=== PATIENT | male | born 1970 | race Caucasian/White ===

== ENCOUNTER 2016-11-13 18:19 | Emergency (ER) | payer MEDICAID ==
[2016-11-13 18:43] LABS: CHLORIDE,CL 105 mmol/L (98-109); SODIUM,NA 142 mmol/L (138-146)
[2016-11-13] MEDS ORDERED: Sodium Chloride 0.9% 1,000 ML IV ONE (18:55)
[2016-11-13] MEDS ORDERED: Succinylcholine 200 MG/10 ML MDV ONE (19:07)
[2016-11-13] MEDS ORDERED: Rocuronium 50 MG/5 ML Vial ONE (19:07)
--- NOTE | 2016-11-13 19:25 | EDM.PDOC ---
<AleksanderAbel - Last Filed: 11/13/16 20:03> ED HPI GENERAL MEDICAL PROBLEM - General Chief Complaint: Neuro Symptoms/Deficits Stated Complaint: CODE GREEN Time Seen by Provider: 11/13/16 18:26 Past Medical History Neurological History: Reports: CVA Social & Family History - Family History Family Medical History: Noncontributory ED EXAM, NEURO - Physical Exam Exam: See Below ED NEURO PROCEDURES - Endotracheal Intubation Time of Intubation: 19:16 ET Intubation Indication: Airway Protection Preparation: Suction, Balloon Tested, BVM Set Up, Difficult Airway Equip Airway Assessment: Large Tongue Pre-Oxygenation: Assisted with BVM, 100% FiO2 Anesthesia Meds: Etomidate, Succinylcholine Placement: Orotracheal Cords Visualized: Yes Number of Attempts: 2 Confirmed By: CO2 Indicator, Bilateral Breath Sounds, Chest Xray Tube Secured By: By RT Endotracheal Intubation Comment: ET tube placement successful on attempt #2. No complications. VSS throughout procedure. EKG INTERPRETATION EKG Date: 11/13/16 Time: 18:52 Rhythm: NSR Rate (Beats/Min): 88 [place]: Normal P-Wave: Present QRS: Normal ST-T: Depressed QT: Normal NM/PQ Interval: 0.19 Comparison: NA - No Prior EKG EKG Interpretation Comments: 1. Sinus Rhythm 2. Moderate ST Depression (0.05+ mV ST Depression) 3. Abnormal QRS-T angle (QRS-T [place] difference >60) Course - Orders/Labs/Meds Labs: Laboratory Tests 11/13/16 11/13/16 11/13/16 Range/Units 18:29 18:30 18:30 WBC 8.5 (4.0-10.0) x10^3/uL RBC 4.36 L (4.5-6.0) x10^6/uL Hgb 13.8 L (14.0-18.0) g/dL Hct 40.8 (40.0-52.0) % MCV 93.6 H (78.0-93.0) fL MCH 31.7 (26.0-32.0) pg MCHC 33.8 (32.0-36.0) g/dL RDW Coeff of Karl 13.4 (10.0-15.0) % Plt Count 136 (130-400) x10^3/uL Add Manual Diff Yes Neutrophils % (Manual) 53 (50-80) % Lymphocytes % (Manual) 28 (25-50) % Monocytes % (Manual) 14 H (2-11) % Eosinophils % (Manual) 5 H (0-4) % Platelet Estimate Adequate Macrocytosis 1+ slight H PT 10.6 (9.8-11.8) SEC INR 1.0 L (2.0-3.5) APTT 23.7 (22.0-34.0) SEC POC ABG pH (7.35-7.45) POC ABG pCO2 (35-45) mmHG POC ABG pO2 (80-105) mmHG POC ABG HCO3 (22-26) mmol/L POC ABG Total CO2 (23-27) mmol/L POC ABG O2 Sat (95-98) % POC ABG Base Excess (-2-3) mmol/L POC FiO2 Sodium (138-146) mmol/L Potassium (3.5-4.9) mmol/L Chloride (98-109) mmol/L Carbon Dioxide (24-29) mmol/L BUN (8-26) mg/dL Creatinine (0.6-1.3) mg/dL Est Cr Clr Drug Dosing Estimated GFR (MDRD) Glucose (70-105) mg/dL POC Glucose 115 H (74-106) mg/dL Calcium (8.5-10.1) mg/dL Corrected Calcium (8.5-10.1) mg/dL Total Bilirubin (0.2-1.0) mg/dL AST (15-37) U/L ALT (16-63) U/L Alkaline Phosphatase (46-116) U/L Creatine Kinase (39-308) U/L Creatine Kinase Index (0.0-4.0) % CK-MB (CK-2) (0.0-3.6) ng/mL POC Troponin I (0.00-0.08) ng/mL Troponin I Total Protein (6.4-8.2) g/dL Albumin (3.4-5.0) g/dL Globulin Albumin/Globulin Ratio Urine Color (YELLOW) Urine Appearance (CLEAR) Urine pH (5.0-8.0) Ur Specific [place] Urine Protein (NEGATIVE) mg/dL Urine Glucose (UA) (NEGATIVE) mg/dL Urine Ketones (NEGATIVE) mg/dL Urine Occult Blood (NEGATIVE) Urine Nitrite (NEGATIVE) Urine Bilirubin (NEGATIVE) Urine Urobilinogen (0.2) EU/dL Ur Leukocyte Esterase (NEGATIVE) Urine RBC (NOT SEEN) /HPF Urine WBC (NOT SEEN) /HPF Ur Squamous Epith Cells (NEGATIVE) /HPF Urine Bacteria (NEGATIVE) /HPF Urine Mucus (NEGATIVE) /LPF Urine Opiates Screen (NEAGTIVE) Ur Buprenorphine Scrn (NEGATIVE) Ur Oxycodone Screen (NEGATIVE) Urine Methadone Screen (NEGATIVE) Ur Barbiturates Screen (NEGATIVE) Ur Tricyclics Screen (NEGATIVE) Ur Amphetamine Screen (NEGATIVE) U Methamphetamines Scrn (NEGATIVE) Urine MDMA Screen (NEGATIVE) U Benzodiazepines Scrn (NEGATIVE) U Cocaine Metab Screen (NEGATIVE) U Marijuana (THC) Screen (NEGATIVE) Ethyl Alcohol (0-3) mg/dL 11/13/16 11/13/16 11/13/16 Range/Units 18:30 18:42 19:28 WBC (4.0-10.0) x10^3/uL RBC (4.5-6.0) x10^6/uL Hgb (14.0-18.0) g/dL Hct (40.0-52.0) % MCV (78.0-93.0) fL MCH (26.0-32.0) pg MCHC (32.0-36.0) g/dL RDW Coeff of Karl (10.0-15.0) % Plt Count (130-400) x10^3/uL Add Manual Diff Neutrophils % (Manual) (50-80) % Lymphocytes % (Manual) (25-50) % Monocytes % (Manual) (2-11) % Eosinophils % (Manual) (0-4) % Platelet Estimate Macrocytosis PT (9.8-11.8) SEC INR (2.0-3.5) APTT (22.0-34.0) SEC POC ABG pH (7.35-7.45) POC ABG pCO2 (35-45) mmHG POC ABG pO2 (80-105) mmHG POC ABG HCO3 (22-26) mmol/L POC ABG Total CO2 (23-27) mmol/L POC ABG O2 Sat (95-98) % POC ABG Base Excess (-2-3) mmol/L POC FiO2 Sodium 142 (138-146) mmol/L Potassium 3.5 (3.5-4.9) mmol/L Chloride 105 (98-109) mmol/L Carbon Dioxide 26 (24-29) mmol/L BUN 15 (8-26) mg/dL Creatinine 1.3 (0.6-1.3) mg/dL Est Cr Clr Drug Dosing TNP Estimated GFR (MDRD) 59 Glucose 116 H (70-105) mg/dL POC Glucose (74-106) mg/dL Calcium 8.1 L (8.5-10.1) mg/dL Corrected Calcium 8.74 (8.5-10.1) mg/dL Total Bilirubin 0.4 (0.2-1.0) mg/dL AST 14 L (15-37) U/L ALT 21 (16-63) U/L Alkaline Phosphatase 124 H (46-116) U/L Creatine Kinase 207 (39-308) U/L Creatine Kinase Index 0.5 (0.0-4.0) % CK-MB (CK-2) 1.1 (0.0-3.6) ng/mL POC Troponin I 0.00 (0.00-0.08) ng/mL Troponin I Cancelled Total Protein 6.7 (6.4-8.2) g/dL Albumin 3.2 L (3.4-5.0) g/dL Globulin 3.5 Albumin/Globulin Ratio 0.91 Urine Color Light yellow (YELLOW) Urine Appearance Slightly cloudy H (CLEAR) Urine pH 6.5 (5.0-8.0) Ur Specific [place] 1.010 Urine Protein Negative (NEGATIVE) mg/dL Urine Glucose (UA) Negative (NEGATIVE) mg/dL Urine Ketones Negative (NEGATIVE) mg/dL Urine Occult Blood Trace-lysed H (NEGATIVE) Urine Nitrite Negative (NEGATIVE) Urine Bilirubin Negative (NEGATIVE) Urine Urobilinogen 0.2 (0.2) EU/dL Ur Leukocyte Esterase Negative (NEGATIVE) Urine RBC 0-5 (NOT SEEN) /HPF Urine WBC 0-5 (NOT SEEN) /HPF Ur Squamous Epith Cells Rare (NEGATIVE) /HPF Urine Bacteria Not seen (NEGATIVE) /HPF Urine Mucus Not seen (NEGATIVE) /LPF Urine Opiates Screen (NEAGTIVE) Ur Buprenorphine Scrn (NEGATIVE) Ur Oxycodone Screen (NEGATIVE) Urine Methadone Screen (NEGATIVE) Ur Barbiturates Screen (NEGATIVE) Ur Tricyclics Screen (NEGATIVE) Ur Amphetamine Screen (NEGATIVE) U Methamphetamines Scrn (NEGATIVE) Urine MDMA Screen (NEGATIVE) U Benzodiazepines Scrn (NEGATIVE) U Cocaine Metab Screen (NEGATIVE) U Marijuana (THC) Screen (NEGATIVE) Ethyl Alcohol < 3 (0-3) mg/dL 11/13/16 11/13/16 Range/Units 19:29 19:57 WBC (4.0-10.0) x10^3/uL RBC (4.5-6.0) x10^6/uL Hgb (14.0-18.0) g/dL Hct (40.0-52.0) % MCV (78.0-93.0) fL MCH (26.0-32.0) pg MCHC (32.0-36.0) g/dL RDW Coeff of Karl (10.0-15.0) % Plt Count (130-400) x10^3/uL Add Manual Diff Neutrophils % (Manual) (50-80) % Lymphocytes % (Manual) (25-50) % Monocytes % (Manual) (2-11) % Eosinophils % (Manual) (0-4) % Platelet Estimate Macrocytosis PT (9.8-11.8) SEC INR (2.0-3.5) APTT (22.0-34.0) SEC POC ABG pH 7.397 (7.35-7.45) POC ABG pCO2 53 H (35-45) mmHG POC ABG pO2 503 H (80-105) mmHG POC ABG HCO3 33 H (22-26) mmol/L POC ABG Total CO2 34 H (23-27) mmol/L POC ABG O2 Sat 100 H (95-98) % POC ABG Base Excess 8 H (-2-3) mmol/L POC FiO2 1.00 Sodium (138-146) mmol/L Potassium (3.5-4.9) mmol/L Chloride (98-109) mmol/L Carbon Dioxide (24-29) mmol/L BUN (8-26) mg/dL Creatinine (0.6-1.3) mg/dL Est Cr Clr Drug Dosing Estimated GFR (MDRD) Glucose (70-105) mg/dL POC Glucose (74-106) mg/dL Calcium (8.5-10.1) mg/dL Corrected Calcium (8.5-10.1) mg/dL Total Bilirubin (0.2-1.0) mg/dL AST (15-37) U/L ALT (16-63) U/L Alkaline Phosphatase (46-116) U/L Creatine Kinase (39-308) U/L Creatine Kinase Index (0.0-4.0) % CK-MB (CK-2) (0.0-3.6) ng/mL POC Troponin I (0.00-0.08) ng/mL Troponin I Total Protein (6.4-8.2) g/dL Albumin (3.4-5.0) g/dL Globulin Albumin/Globulin Ratio Urine Color (YELLOW) Urine Appearance (CLEAR) Urine pH (5.0-8.0) Ur Specific [place] Urine Protein (NEGATIVE) mg/dL Urine Glucose (UA) (NEGATIVE) mg/dL Urine Ketones (NEGATIVE) mg/dL Urine Occult Blood (NEGATIVE) Urine Nitrite (NEGATIVE) Urine Bilirubin (NEGATIVE) Urine Urobilinogen (0.2) EU/dL Ur Leukocyte Esterase (NEGATIVE) Urine RBC (NOT SEEN) /HPF Urine WBC (NOT SEEN) /HPF Ur Squamous Epith Cells (NEGATIVE) /HPF Urine Bacteria (NEGATIVE) /HPF Urine Mucus (NEGATIVE) /LPF Urine Opiates Screen Negative (NEAGTIVE) Ur Buprenorphine Scrn Negative (NEGATIVE) Ur Oxycodone Screen Negative (NEGATIVE) Urine Methadone Screen Negative (NEGATIVE) Ur Barbiturates Screen Negative (NEGATIVE) Ur Tricyclics Screen Positive H (NEGATIVE) Ur Amphetamine Screen Negative (NEGATIVE) U Methamphetamines Scrn Negative (NEGATIVE) Urine MDMA Screen Negative (NEGATIVE) U Benzodiazepines Scrn Negative (NEGATIVE) U Cocaine Metab Screen Negative (NEGATIVE) U Marijuana (THC) Screen Negative (NEGATIVE) Ethyl Alcohol (0-3) mg/dL Meds: Medications Discontinued Medications Generic Name Dose Route Start Last Admin Trade Name Freq PRN Reason Stop Dose Admin Chlorhexidine Gluconate Confirm 11/13/16 21:35 Peridex 0.12% Rinse Administered 11/13/16 21:36 Dose 15 ml .ROUTE .STK-MED ONE Etomidate Confirm 11/13/16 21:30 Amidate Administered 11/13/16 21:31 Dose 20 mg .ROUTE .STK-MED ONE Etomidate Confirm 11/13/16 21:31 Amidate Administered 11/13/16 21:32 Dose 20 mg .ROUTE .STK-MED ONE Fentanyl Confirm 11/13/16 21:29 Sublimaze Administered 11/13/16 21:30 Dose 100 mcg .ROUTE .STK-MED ONE Sodium Chloride 1,000 mls @ as directed 11/13/16 18:55 Normal Saline IV 11/13/16 18:56 .STK-MED ONE Midazolam HCl Confirm 11/13/16 21:30 Versed 1 Mg/Ml Administered 11/13/16 21:31 Dose 2 mg .ROUTE .STK-MED ONE Rocuronium [place] Confirm 11/13/16 19:07 Zemuron Administered 11/13/16 19:08 Dose 50 mg .ROUTE .STK-MED ONE Sodium Chloride 10 ml 11/13/16 19:30 Saline Flush FLUSH ASDIRECTED PRN Keep Vein Open Succinylcholine Chloride Confirm 11/13/16 19:07 Quelicin Administered 11/13/16 19:08 Dose 200 mg .ROUTE .STK-MED ONE Departure - Departure Time of Disposition: 19:59 Disposition: DC/Tfer to [facility] 02 Condition: Good Clinical Impression: Airway intubation performed without difficulty, Ineffective airway clearance Overdose Qualifiers: Encounter type: initial encounter Injury intent: undetermined intent Qualified Code(s): T50.904A - Poisoning by unspecified drugs, medicaments and biological substances, undetermined, initial encounter Altered mental status Qualifiers: Altered mental status type: somnolence Qualified Code(s): R40.0 - Somnolence - Discharge Information Forms: Interfacility Transfer [facility] ED Communication - ED Communication Date/Time Date: 11/13/16 Time Called: 19:38 - Discussed Case With (1) Discussed Case With (1): Admitting Provider (Dr. Lee, ICU [facility] [place] Operator) - Conversation Summary Admitting Provider Agreed to Patient's Admission: Yes Summary Comment: Patient will be transferred to [facility]. Report given to Dr. Lee, ICU Strip [place] Operator. All questions answered. Patient will be transferred via ALS ground. - Problem List Review Problem List Initiated/Reviewed/Updated: Yes <Oli Pink - Last Filed: 11/17/16 09:42> ED HPI GENERAL MEDICAL PROBLEM - General Source of Information: Reports: EMS History Limitations: Reports: Altered Mental Status - History of Present Illness INITIAL COMMENTS - FREE TEXT/NARRATIVE: Patient comes in via ems for possible stroke like symptoms. His girlfriend reports some speech slurring at about 430, she then left and upon her return at 1800 found him further slurring speech, poor reactivity. Brought here and is largely uncooperative. Strength is equal to upper, lower extremities. Onset: Today, Sudden ED ROS GENERAL - Review of Systems Review Of Systems: Unable To Obtain ED EXAM, NEURO - Physical Exam Exam Limited By: Other (possible overdose of cyclobenzaprine and celebrex) General Appearance: Lethargic, Moderate Distress, Thin Eye Exam: Bilateral Eye: Abnormal Pupil (slow reaction), EOMI (moving independently but not following commands), PERRL (slow to react) Ears: Normal TMs Throat/Mouth: Normal Lips. No: Normal Teeth (missing) Head Exam: Atraumatic, Normocephalic Respiratory/Chest: No Respiratory Distress, Lungs Clear, Normal Breath Sounds, No Accessory Muscle Use, Chest Non-Tender Cardiovascular: Normal Peripheral Pulses, Regular Rate, Rhythm, No Edema, No Murmur GI/Abdominal: Normal Bowel Sounds, Soft, Non-Tender, No Organomegaly Neurological: Other (largely non cooperative with commands. He is able to lift and hold all four extremities with equal strength) Extremities: Normal Inspection, Normal Range of Motion, Non-Tender, Normal Capillary Refill Psychiatric: Normal Affect Skin Exam: Warm, Dry, Intact, Normal Color Course - Vital Signs Text/Narrative:: Please see Abel Armijo note for further information. Report given to him. Intubated and transferred to [place].
[2016-11-13] MEDS ORDERED: Sodium Chloride 0.9% 10 ML Syringe FLUSH PRN (19:30)
[2016-11-13] MEDS ORDERED: fentaNYL 100 MCG/2 ML SDV ONE (21:29)
[2016-11-13] MEDS ORDERED: Etomidate 2 MG/ML 10 ML SDV ONE ×2 (21:30→21:31)
[2016-11-13] MEDS ORDERED: Midazolam 1 MG/ML 2 ML SDV ONE (21:30)
[2016-11-13] MEDS ORDERED: Chlorhexidine Gluconate 0.12% Oral Rinse 15 ML Cup ONE (21:35)
== END 2016-11-13 20:19 | disposition short-term general hospital (02) ==
LOC: VM.ED 18:19
DX: T39.391A Poisoning by other nonsteroidal anti-inflammatory drugs [NSAID], accidental (unintentional), initial encounter (principal); T48.1X1A Poisoning by skeletal muscle relaxants [neuromuscular blocking agents], accidental (unintentional), initial encounter; R40.0 Somnolence
CPT/HCPCS: 31500; 36415; 36600; 70450; 71010; 80053; 80299; 80305; 81001; 82550; 82553; 82803; 82962; 84484; 85025; 85610; 85730; 93005; 94002; 96361; 96374; 96375; 99291; 99292; G0480; J0330; J2250; J3010; J7030; 51702

== ENCOUNTER 2017-08-27 13:10 | Emergency (ER) | payer MEDICAID ==
[2017-08-27 14:57] LABS: CHLORIDE,CL 108 mmol/L (98-107); SODIUM,NA 140 mmol/L (136-145)
[2017-08-27] MEDS ORDERED: Iopamidol 612 MG/ML 100 ML Bottle IVPUSH ONE (15:28)
[2017-08-27] MEDS ORDERED: Acetaminophen/HYDROcodone 325-10 MG Tab PO ONE (15:34)
--- NOTE | 2017-08-28 12:43 | EDM.PDOC ---
ED HPI GENERAL MEDICAL PROBLEM - General Chief Complaint: General Stated Complaint: RIGHT RIBS HURT Time Seen by Provider: 08/27/17 13:20 Source of Information: Reports: Patient History Limitations: Reports: No Limitations - History of Present Illness INITIAL COMMENTS - FREE TEXT/NARRATIVE: Pt. states that he fell and landed with the r lower ribs striking a speaker. He complains of RUQ abdominal pain and R lower rib pain. He states that this happened yesterday and is not improving. Denies any lightheadedness. No nausea, vomiting, or diarrhea. Onset: Today Location: Reports: Chest, Abdomen Quality: Reports: Ache, Stabbing, Throbbing Severity: Severe Thoracic Pain Score (Numeric/FACES): 8 - Related Data Allergies Allergy/AdvReac Type Severity Reaction Status Date / Time No Known Allergies Allergy Verified 08/27/17 13:55 Past Medical History Neurological History: Reports: CVA Social & Family History - Family History Family Medical History: Noncontributory - Tobacco Use Smoking Status *Q: Current Every Day Smoker Years of Tobacco use: 20 Packs/Tins Daily: 0.5 ED ROS GENERAL - Review of Systems Review Of Systems: See Below Constitutional: Reports: No Symptoms HEENT: Reports: No Symptoms Respiratory: Reports: No Symptoms Cardiovascular: Reports: Chest Pain Endocrine: Reports: No Symptoms GI/Abdominal: Reports: Abdominal Pain : Reports: No Symptoms Musculoskeletal: Reports: No Symptoms Skin: Reports: No Symptoms Neurological: Reports: No Symptoms Psychiatric: Reports: No Symptoms Hematologic/Lymphatic: Reports: No Symptoms Immunologic: Reports: No Symptoms ED EXAM, GENERAL - Physical Exam Exam: See Below Exam Limited By: No Limitations General Appearance: Alert, WD/WN, No Apparent Distress Nose: Normal Inspection, Normal Mucosa, No Blood Throat/Mouth: Normal Inspection, Normal Lips, Normal Teeth, Normal Gums, Normal Oropharynx, Normal Voice, No Airway Compromise Head: Atraumatic, Normocephalic Neck: Normal Inspection, Supple, Non-Tender, Full Range of Motion Respiratory/Chest: No Respiratory Distress, No Accessory Muscle Use, Decreased Breath Sounds, Other (R sided chest pain) Cardiovascular: Normal Peripheral Pulses, Regular Rate, Rhythm, No Edema, No Gallop, No JVD, No Murmur, No Rub Peripheral Pulses: 4+: Femoral (L), Femoral (R) GI/Abdominal: No Organomegaly, No Distention, Tender (Male) Exam: Deferred Rectal (Males) Exam: Deferred Course - Vital Signs Last Recorded V/S: Last Vital Signs Temp 36.8 C 08/27/17 13:15 Pulse 67 08/27/17 13:15 Resp 16 08/27/17 13:15 BP 137/93 H 08/27/17 13:15 Pulse Ox 96 08/27/17 13:15 - Orders/Labs/Meds Orders: Active Orders 24 hr Category Date Time Status Chest Abdomen Pelvis w Cont [CT] Stat Exams 08/27/17 14:53 Taken Ribs 2V w Chest Rt [CR] Stat Exams 08/27/17 13:55 Taken Labs: Laboratory Tests 08/27/17 08/27/17 08/27/17 Range/Units 14:36 14:36 14:36 WBC 7.5 (4.0-10.0) x10^3/uL RBC 4.82 (4.5-6.0) x10^6/uL Hgb 15.0 (14.0-18.0) g/dL Hct 44.6 (40.0-52.0) % MCV 92.5 (78.0-93.0) fL MCH 31.1 (26.0-32.0) pg MCHC 33.6 (32.0-36.0) g/dL RDW Coeff of Karl 14.0 (10.0-15.0) % Plt Count 104 L (130-400) x10^3/uL Neut % (Auto) 69.8 (50.0-80.0) % Lymph % (Auto) 19.7 L (25.0-50.0) % [place] % (Auto) 7.8 (2.0-11.0) % Eos % (Auto) 2.4 (0.0-4.0) % Baso % (Auto) 0.3 (0.2-1.2) % PT 10.1 (9.6-11.4) SEC INR 1.0 L (2.0-3.5) Sodium 140 (136-145) mmol/L Potassium 3.8 (3.5-5.1) mmol/L Chloride 108 H (98-107) mmol/L Carbon Dioxide 23 (21-32) mmol/L Anion [place] 12.8 (10-20) mmol/L BUN 16 (7-18) mg/dL Creatinine 1.2 (0.70-1.30) mg/dL Est Cr Clr Drug Dosing TNP Estimated GFR (MDRD) > 60 Glucose 91 (74-106) mg/dL Calcium 8.2 L (8.5-10.1) mg/dL Meds: Medications Discontinued Medications Generic Name Dose Route Start Last Admin Trade Name Freq PRN Reason Stop Dose Admin Hydrocodone Bitart/Acetaminophen 1 tab 08/27/17 15:34 08/27/17 15:38 [place] 325-10 Mg PO 08/27/17 15:35 1 tab ONETIME ONE Administration Iopamidol 100 ml 08/27/17 15:28 08/27/17 15:51 Isovue-300 (61%) IVPUSH 08/27/17 15:29 100 ml ONETIME ONE Administration - Radiology Interpretation Free Text/Narrative:: Plain film and contrast CT images did not indicate any acute pathology other than 2 fractured ribs. Departure - Departure Time of Disposition: 17:10 Disposition: Home, Self-Care 01 Clinical Impression: Chest wall contusion - Discharge Information Instructions: Rib Fracture Referrals: Cody Abdul PA-C [Primary Care Provider] - Forms: ED Department Discharge Additional Instructions: [place] 5/325mg 1 tablet every 6 hours as needed. May take Aleve or Ibuprofen for discomfort in addition. Follow-up in clinic in 5-7 days. - My Orders Last 24 Hours: My Active Orders 08/27/17 13:55 Ribs 2V w Chest Rt [CR] Stat 08/27/17 14:53 Chest Abdomen Pelvis w Cont [CT] Stat - Assessment/Plan Last 24 Hours: My Active Orders 08/27/17 13:55 Ribs 2V w Chest Rt [CR] Stat 08/27/17 14:53 Chest Abdomen Pelvis w Cont [CT] Stat
== END 2017-08-27 17:10 | disposition home or self-care (01) ==
LOC: VM.ED 13:10
DX: S20.211A Contusion of right front wall of thorax, initial encounter (principal); F17.210 Nicotine dependence, cigarettes, uncomplicated; W22.8XXA Striking against or struck by other objects, initial encounter
CPT/HCPCS: 36415; 71101; 71260; 74177; 80048; 85025; 85610; 99284; A9270; Q9967

== ENCOUNTER 2017-08-30 09:32 | Emergency (ER) | payer MEDICAID ==
--- NOTE | 2017-08-30 10:04 | EDM.PDOC ---
ED HPI GENERAL MEDICAL PROBLEM - General Chief Complaint: General Stated Complaint: Chronic rib pain Time Seen by Provider: 08/30/17 09:45 Source of Information: Reports: Patient History Limitations: Reports: No Limitations - History of Present Illness INITIAL COMMENTS - FREE TEXT/NARRATIVE: Pt. presents to ER with complaints of continued R lower rib pain requesting a refill of his norco. Pt. was seen in ER approx. 3 days ago with complaints of rib pain after a fall. He states that he landed on a speaker during the fall and was experiencing respirophasic anterior chest pain. Plain film x-rays revealed 2 rib fractures (9th and 10th ribs) on the plain film radiographs. The fractures were overlying the liver. Decision was made to CT the pts. chest and abdomen. There was on evidence of pneumothorax, liver laceration or other pathology. Pt. states that he hasn't been taking his ibuprofen regularly. Onset Date: 08/30/17 Onset Time: 09:40 Location: Reports: Chest Quality: Reports: Ache, Throbbing Associated Symptoms: Reports: Chest Pain, Shortness of Breath (Dyspnea due to discomfort) Right Lower Chest Pain Score (Numeric/FACES): 8 - Related Data Allergies Allergy/AdvReac Type Severity Reaction Status Date / Time No Known Allergies Allergy Verified 08/30/17 09:45 Home Meds: Home Meds Mirtazapine 30 mg DAILY 08/30/17 [History] atorvaSTATin [Lipitor] 40 mg DAILY 08/30/17 [History] Past Medical History Cardiovascular History: Reports: High Cholesterol Neurological History: Reports: CVA Psychiatric History: Reports: Anxiety, Depression Social & Family History - Family History Family Medical History: Noncontributory - Tobacco Use Smoking Status *Q: Current Every Day Smoker Years of Tobacco use: 20 Packs/Tins Daily: 1 Used Tobacco, but Quit: No - Recreational Drug Use Recreational Drug Use: No ED ROS GENERAL - Review of Systems Review Of Systems: See Below Constitutional: Reports: No Symptoms. Denies: Fever, Chills, Malaise, Weakness , Fatigue, Night Sweats, Diaphoresis HEENT: Reports: No Symptoms Respiratory: Reports: No Symptoms Cardiovascular: Reports: No Symptoms Endocrine: Reports: No Symptoms GI/Abdominal: Reports: No Symptoms : Reports: No Symptoms Musculoskeletal: Reports: No Symptoms Skin: Reports: No Symptoms Neurological: Reports: No Symptoms Psychiatric: Reports: No Symptoms Hematologic/Lymphatic: Reports: No Symptoms Immunologic: Reports: No Symptoms ED EXAM, GENERAL - Physical Exam Exam: See Below Exam Limited By: No Limitations General Appearance: Alert, WD/WN, No Apparent Distress Throat/Mouth: Normal Inspection, Normal Lips, Normal Teeth, Normal Gums, Normal Oropharynx, Normal Voice, No Airway Compromise Head: Atraumatic, Normocephalic Neck: Normal Inspection, Supple, Non-Tender, Full Range of Motion Respiratory/Chest: No Respiratory Distress, Lungs Clear, Normal Breath Sounds, No Accessory Muscle Use, Chest Non-Tender Cardiovascular: Normal Peripheral Pulses, Regular Rate, Rhythm, No Edema, No Gallop, No JVD, No Murmur, No Rub Peripheral Pulses: 3+: Radial (L), Radial (R) GI/Abdominal: Normal Bowel Sounds, Soft, Non-Tender, No Organomegaly, No Distention (Male) Exam: Deferred Rectal (Males) Exam: Deferred Back Exam: Normal Inspection, Full Range of Motion, NT Extremities: Normal Inspection, Normal Range of Motion, Non-Tender, Normal Capillary Refill, No Pedal Edema Neurological: Alert, Oriented, CN II-XII Intact, Normal Cognition, Normal Gait, Normal Reflexes, No Motor/Sensory Deficits Skin Exam: Warm, Dry, Intact, Normal Color, No Rash Course - Vital Signs Last Recorded V/S: Last Vital Signs Temp 36.1 C 08/30/17 09:35 Pulse 64 08/30/17 09:35 Resp 20 08/30/17 09:35 BP 137/89 08/30/17 09:35 Pulse Ox 96 08/30/17 09:35 Departure - Departure Time of Disposition: 10:00 Disposition: Home, Self-Care 01 Condition: Good Clinical Impression: Rib fractures - Discharge Information Instructions: Rib Fracture Referrals: Cody Abdul PA-C [Primary Care Provider] - Forms: ED Department Discharge Additional Instructions: Ibuprofen 800mg every 8 hours for pain. Follow-up in clinic as needed. I would try heat for the rib pain at this point.
== END 2017-08-30 09:57 | disposition home or self-care (01) ==
LOC: VM.ED 09:32
DX: S22.41XA Multiple fractures of ribs, right side, initial encounter for closed fracture (principal); F17.210 Nicotine dependence, cigarettes, uncomplicated; W01.0XXA Fall on same level from slipping, tripping and stumbling without subsequent striking against object, initial encounter
CPT/HCPCS: 99283

== ENCOUNTER 2017-09-28 13:32 | Emergency (ER) | payer MEDICAID ==
[2017-09-28] MEDS ORDERED: Ondansetron 4 MG/2 ML SDV IVPUSH ONE (13:46)
[2017-09-28] MEDS ORDERED: Morphine 2 MG/ML Syringe IVPUSH ONE ×2 (13:46→14:43)
[2017-09-28] MEDS ORDERED: Sodium Chloride 0.9% 10 ML Syringe FLUSH PRN (13:46)
--- NOTE | 2017-09-28 13:55 | EDM.PDOC ---
ED HPI GENERAL MEDICAL PROBLEM - General Stated Complaint: lower abdominal pain Time Seen by Provider: 09/28/17 13:40 Source of Information: Reports: Patient, RN Notes Reviewed - History of Present Illness INITIAL COMMENTS - FREE TEXT/NARRATIVE: Emergency department with a sudden onset of right lower abdominal quadrant pain. Patient states the pain started approximately 12 hours ago. He stated it was a sharp shooting. He did not establish short fever last night however he has not had one today. He denies any nausea, vomiting, diarrhea, constipation or urinary symptoms. He states the pain has progressively gotten worse present making him want to present. No recent travel, no undercooked food, no recent outings at a restaurant buffet. Patient history includes 2 strokes proximally a year ago when he was hospitalized for an extended period of time for rehabilitation. Other than that he states he is fairly healthy. Last ate greater than 12 hours ago. Last drank about 4 hours ago Onset: Sudden Quality: Reports: Sharp, Stabbing Severity: Severe Improves with: Reports: Immobilization Worsens with: Reports: Movement Associated Symptoms: Reports: Loss of Appetite. Denies: Confusion, Chest Pain, Cough, cough w sputum, Diaphoresis, Fever/Chills, Headaches, Nausea/Vomiting, Shortness of Breath, Syncope Right Lower Abdomen Pain Score (Numeric/FACES): 9 - Related Data Allergies Allergy/AdvReac Type Severity Reaction Status Date / Time No Known Allergies Allergy Verified 09/28/17 13:55 Home Meds: Home Meds Mirtazapine 30 mg DAILY 08/30/17 [History] atorvaSTATin [Lipitor] 40 mg DAILY 08/30/17 [History] Past Medical History Cardiovascular History: Reports: High Cholesterol Neurological History: Reports: CVA Psychiatric History: Reports: Anxiety, Depression Social & Family History - Family History Family Medical History: Noncontributory ED ROS GENERAL - Review of Systems Review Of Systems: See Below Constitutional: Reports: No Symptoms HEENT: Reports: No Symptoms Respiratory: Reports: No Symptoms Cardiovascular: Reports: No Symptoms Endocrine: Reports: No Symptoms GI/Abdominal: Reports: Abdominal Pain, Decreased Appetite. Denies: Anorexia, Black Stool, Bloody Stool, Constipation, Diarrhea, Difficulty Swallowing, Distension, Flatus, Hematemesis, Melena, Mucous in Stool, Nausea, Vomiting : Reports: No Symptoms Musculoskeletal: Reports: No Symptoms Skin: Reports: No Symptoms Neurological: Reports: No Symptoms Psychiatric: Reports: No Symptoms Hematologic/Lymphatic: Reports: No Symptoms Immunologic: Reports: No Symptoms ED EXAM, GI/ABD - Physical Exam Exam: See Below Exam Limited By: No Limitations General Appearance: Alert, WD/WN, No Apparent Distress Nose: Normal Inspection, Normal Mucosa Throat/Mouth: Normal Inspection, Normal Lips Head: Atraumatic, Normocephalic Neck: Normal Inspection, Supple, Non-Tender, Full Range of Motion Respiratory/Chest: No Respiratory Distress, Lungs Clear, Normal Breath Sounds, No Accessory Muscle Use, Chest Non-Tender Cardiovascular: Normal Peripheral Pulses, Regular Rate, Rhythm, No Edema, No Murmur GI/Abdominal Exam: Normal Bowel Sounds, No Organomegaly, No Distention, No Abnormal Bruit, No Mass, Pelvis Stable, Guarding, Rebound, Tender, Other (+ McBurney sign, +Rovsing sign ). No: Abnormal Bowel Sounds, Hernia, Mass, Hepatomegaly Back Exam: Normal Inspection, Full Range of Motion Extremities: Normal Inspection, Normal Range of Motion, Non-Tender, No Pedal Edema, Normal Capillary Refill Neurological: Alert, Oriented, Normal Cognition, Normal Gait Psychiatric: Normal Affect, Normal Mood Skin Exam: Warm, Dry, Normal Color, No Rash Course - Vital Signs Last Recorded V/S: Last Vital Signs Temp 37.2 C 09/28/17 13:40 Pulse 80 09/28/17 13:40 Resp 16 09/28/17 13:40 BP 145/86 H 09/28/17 13:40 Pulse Ox 99 09/28/17 13:40 - Orders/Labs/Meds Orders: Active Orders 24 hr Category Date Time Status Abdomen Pelvis w Cont [CT] Stat Exams 09/28/17 13:46 Taken UA W/MICROSCOPIC [URIN] Stat Lab 09/28/17 13:56 Ordered Sodium Chloride 0.9% [Normal Saline] 1,000 ml Med 09/28/17 14:00 Active IV ASDIRECTED Sodium Chloride 0.9% [Saline Flush] Med 09/28/17 13:46 Active 10 ml FLUSH ASDIRECTED PRN Peripheral IV Insertion Adult [OM.PC] Stat Oth 09/28/17 13:44 Ordered Medication Orders Sodium Chloride (Normal Saline) 1,000 mls @ 250 mls/hr IV ASDIRECTED TIARA Last Admin: 09/28/17 13:59 Dose: 250 mls/hr Sodium Chloride (Saline Flush) 10 ml FLUSH ASDIRECTED PRN PRN Reason: Keep Vein Open Labs: Laboratory Tests 09/28/17 09/28/17 09/28/17 Range/Units 13:52 13:52 13:56 WBC 8.5 (4.0-10.0) x10^3/uL RBC 4.27 L (4.5-6.0) x10^6/uL Hgb 13.7 L (14.0-18.0) g/dL Hct 40.5 (40.0-52.0) % MCV 94.8 H (78.0-93.0) fL MCH 32.1 H (26.0-32.0) pg MCHC 33.8 (32.0-36.0) g/dL RDW Coeff of Karl 14.0 (10.0-15.0) % Plt Count 105 L (130-400) x10^3/uL Neut % (Auto) 67.7 (50.0-80.0) % Lymph % (Auto) 17.9 L (25.0-50.0) % [place] % (Auto) 11.2 H (2.0-11.0) % Eos % (Auto) 3.1 (0.0-4.0) % Baso % (Auto) 0.1 L (0.2-1.2) % Sodium 141 (136-145) mmol/L Potassium 3.3 L (3.5-5.1) mmol/L Chloride 107 (98-107) mmol/L Carbon Dioxide 24 (21-32) mmol/L Anion Gap 13.3 (10-20) mmol/L BUN 16 (7-18) mg/dL Creatinine 1.1 (0.70-1.30) mg/dL Est Cr Clr Drug Dosing 91.12 mL/min Estimated GFR (MDRD) > 60 Glucose 143 H (74-106) mg/dL Calcium 7.9 L (8.5-10.1) mg/dL Corrected Calcium 8.62 (8.5-10.1) mg/dL Total Bilirubin 1.5 H (0.2-1.0) mg/dL AST 30 (15-37) U/L ALT 36 (16-63) U/L Alkaline Phosphatase 99 (46-116) U/L Total Protein 6.4 (6.4-8.2) g/dL Albumin 3.1 L (3.4-5.0) g/dL Globulin 3.3 Albumin/Globulin Ratio 0.94 Urine Color Yellow (YELLOW) Urine Appearance Clear (CLEAR) Urine pH 6.5 (5.0-8.0) Ur Specific [place] 1.020 Urine Protein Trace H (NEGATIVE) mg/dL Urine Glucose (UA) Negative (NEGATIVE) mg/dL Urine Ketones Negative (NEGATIVE) mg/dL Urine Occult Blood Small H (NEGATIVE) Urine Nitrite Negative (NEGATIVE) Urine Bilirubin Small H (NEGATIVE) Urine Urobilinogen 4.0 H (0.2) EU/dL Ur Leukocyte Esterase Negative (NEGATIVE) Urine RBC 0-5 (NOT SEEN) /HPF Urine WBC 0-5 (NOT SEEN) /HPF Ur Squamous Epith Cells Not seen (NEGATIVE) /HPF Urine Bacteria Rare (NEGATIVE) /HPF Urine Mucus Moderate H (NEGATIVE) /LPF Meds: Medications Generic Name Dose Route Start Last Admin Trade Name Freq PRN Reason Stop Dose Admin Sodium Chloride 1,000 mls @ 250 mls/hr 09/28/17 14:00 09/28/17 13:59 Normal Saline IV 250 mls/hr ASDIRECTED TIARA Administration Sodium Chloride 10 ml 09/28/17 13:46 Saline Flush FLUSH ASDIRECTED PRN Keep Vein Open Discontinued Medications Generic Name Dose Route Start Last Admin Trade Name Freq PRN Reason Stop Dose Admin Cefoxitin Sodium 1 gm 09/28/17 16:04 09/28/17 16:23 Mefoxin IVPUSH 09/28/17 16:05 1 gm ONETIME ONE Administration Iopamidol 100 ml 09/28/17 14:17 Isovue-300 (61%) IVPUSH 09/28/17 14:18 ONETIME ONE Morphine Sulfate 2 mg 09/28/17 13:46 09/28/17 13:57 Morphine IVPUSH 09/28/17 13:47 2 mg ONETIME ONE Administration Morphine Sulfate 2 mg 09/28/17 14:43 09/28/17 14:51 Morphine IVPUSH 09/28/17 14:44 2 mg ONETIME ONE Administration Ondansetron HCl 4 mg 09/28/17 13:46 09/28/17 13:59 Zofran IVPUSH 09/28/17 13:47 4 mg ONETIME ONE Administration - Radiology Interpretation CT Results Date: 09/28/17 (15mm diameter with moderate surrounding inflammation extending to the terminal ileum. Acute appendicitis ) CT Results Time: 16:05 - Re-Assessments/Exams Free Text/Narrative Re-Assessment/Exam: 09/28/17 14:44 7/10 pain- 2mg morphine ordered Departure - Departure Time of Disposition: 16:30 Disposition: DC/Tfer to Acute Hospital 02 Condition: Good Clinical Impression: Abdominal pain Qualifiers: Abdominal location: right lower quadrant Qualified Code(s): R10.31 - Right lower quadrant pain - Discharge Information Referrals: Cody Abdul PA-C [Primary Care Provider] - Forms: Interfacility Transfer EMTALA - My Orders Last 24 Hours: My Active Orders 09/28/17 13:44 Peripheral IV Insertion Adult [OM.PC] Stat 09/28/17 13:46 Abdomen Pelvis w Cont [CT] Stat Sodium Chloride 0.9% [Saline Flush] 10 ml FLUSH ASDIRECTED PRN 09/28/17 13:56 UA W/MICROSCOPIC [URIN] Stat 09/28/17 14:00 Sodium Chloride 0.9% [Normal Saline] 1,000 ml IV ASDIRECTED - Assessment/Plan Last 24 Hours: My Active Orders 09/28/17 13:44 Peripheral IV Insertion Adult [OM.PC] Stat 09/28/17 13:46 Abdomen Pelvis w Cont [CT] Stat Sodium Chloride 0.9% [Saline Flush] 10 ml FLUSH ASDIRECTED PRN 09/28/17 13:56 UA W/MICROSCOPIC [URIN] Stat 09/28/17 14:00 Sodium Chloride 0.9% [Normal Saline] 1,000 ml IV ASDIRECTED Assessment:: 1. right lower abdominal pain Plan: 1. Labs completed ER results reviewed with the patient 2. CT completed in the ER results reviewed with the patient 3. IV started with normal saline running 250ml/hr 4. 2 mg morphine given initially for severe pain with 4 mg Zofran to prevent nausea 5. Pt continues to have severe pain 2nd does 2mg morphine given 6. 1540- awaiting results of CT contact made with radiology department regarding status 7. 1605- acute appendicitis on CT results. Consult with [facility] however they do not have images yet. 8. Cefoxitin IV ordered 9. 162- Dr. Rodriguez called back regarding CT. He has accepted care however may not be able to take to the operating room till tomorrow. He would like use to make sure pt is ok with this. Pt agreed to still be transferred to await surgery. 10. Pain is a 4/10 prior to discharge. VSS. Pt resting comfortably with no concerns.
[2017-09-28] MEDS ORDERED: Sodium Chloride 0.9% 1,000 ML IV SCH (14:00)
[2017-09-28] MEDS ORDERED: Iopamidol 612 MG/ML 100 ML Bottle IVPUSH ONE (14:17)
[2017-09-28 14:19] LABS: CHLORIDE,CL 107 mmol/L (98-107); SODIUM,NA 141 mmol/L (136-145)
[2017-09-28 14:22] LABS: ANION GAP 13.3 mmol/L (10-20)
[2017-09-28] MEDS ORDERED: cefOXitin 1 GM Vial IVPUSH ONE (16:04)
== END 2017-09-28 16:45 | disposition short-term general hospital (02) ==
LOC: VM.ED 13:32
DX: R10.31 Right lower quadrant pain (principal); E78.00 Pure hypercholesterolemia, unspecified; F41.9 Anxiety disorder, unspecified; F32.9 Major depressive disorder, single episode, unspecified; Z79.899 Other long term (current) drug therapy
CPT/HCPCS: 36415; 74177; 80053; 81001; 85025; 96361; 96374; 96375; 96376; 99285; J0694; J2270; J2405; J7030

== ENCOUNTER 2018-04-19 16:54 | Emergency (ER) | payer MEDICAID ==
--- NOTE | 2018-04-19 17:11 | EDM.PDOC ---
ED HPI GENERAL MEDICAL PROBLEM - General Chief Complaint: Lower Extremity Injury/Pain Stated Complaint: Fall; Lower leg pain Time Seen by Provider: 04/19/18 16:57 Source of Information: Reports: Patient, Family, RN, RN Notes Reviewed History Limitations: Reports: No Limitations - History of Present Illness INITIAL COMMENTS - FREE TEXT/NARRATIVE: Patient presents to the ED at [facility] complaining of left lower leg pain after he fell going down steps. He is not sure how many steps he fell down. He denies any head injury or trauma. He states his pain is lower left anterior odonnell. Onset Date: 04/18/18 Left Lower Leg Pain Score (Numeric/FACES): 9 - Related Data Allergies Allergy/AdvReac Type Severity Reaction Status Date / Time No Known Allergies Allergy Verified 04/19/18 17:07 Home Meds: Home Meds Mirtazapine 45 mg PO DAILY 08/30/17 [History] atorvaSTATin [Lipitor] 40 mg PO DAILY 08/30/17 [History] Past Medical History Cardiovascular History: Reports: High Cholesterol Neurological History: Reports: CVA Psychiatric History: Reports: Anxiety, Depression Social & Family History - Family History Family Medical History: Noncontributory Review of Systems - Review of Systems Review Of Systems: See Below Constitutional: Denies: Chills, Fever Respiratory: Denies: Shortness of Breath, Cough Cardiovascular: Denies: Chest Pain, Palpitations GI/Abdominal: Denies: Abdominal Pain, Nausea, Vomiting Musculoskeletal: Reports: Leg Pain (lower left anterior odonnell) Skin: Reports: No Symptoms Neurological: Reports: No Symptoms. Denies: Numbness, Paresthesia, Tingling ED EXAM, GENERAL - Physical Exam Exam: See Below Exam Limited By: No Limitations General Appearance: Alert, No Apparent Distress Head: Atraumatic, Normocephalic Neck: Normal Inspection, Supple, Non-Tender, Full Range of Motion Respiratory/Chest: No Respiratory Distress, Lungs Clear, Normal Breath Sounds Cardiovascular: Normal Peripheral Pulses, Regular Rate, Rhythm Peripheral Pulses: 2+: Posterior Tibial (L), Dorsalis Pedis (L) GI/Abdominal: Normal Bowel Sounds, Soft, Non-Tender Extremities: Normal Inspection, Leg Pain. No: Increased Warmth, Redness Neurological: Alert, Oriented Course - Vital Signs Last Recorded V/S: Last Vital Signs Temp 35.9 C 04/19/18 16:57 Pulse 82 04/19/18 16:57 Resp 18 04/19/18 16:57 BP 129/79 04/19/18 16:57 Pulse Ox 97 04/19/18 16:57 - Orders/Labs/Meds Orders: Active Orders 24 hr Category Date Time Status Tibia Fibula Lt [CR] Stat Exams 04/19/18 17:07 Taken - Radiology Interpretation Free Text/Narrative:: Left Tib/Fib: No acute fracture or dislocation see on plain film See scanned report in EMR Departure - Departure Time of Disposition: 17:37 Disposition: Home, Self-Care 01 Condition: Good Clinical Impression: Contusion of leg, left Qualifiers: Encounter type: initial encounter Qualified Code(s): S80.12XA - Contusion of left lower leg, initial encounter Fall Qualifiers: Encounter type: initial encounter Qualified Code(s): W19.XXXA - Unspecified fall, initial encounter - Discharge Information *PRESCRIPTION DRUG MONITORING PROGRAM REVIEWED*: Not Applicable *COPY OF PRESCRIPTION DRUG MONITORING REPORT IN PATIENT SAMANTHA: Not Applicable Instructions: Contusion Forms: ED Department Discharge Additional Instructions: 1. Stay well hydrated and rest 2. Xrays were normal 3. Use Tylenol/Advil as needed for pain 4. Rest, elevate and put ice on left leg 5. This will be bothersome for the next couple weeks 6. See your PCP as needed - Problem List Review Problem List Initiated/Reviewed/Updated: Yes - My Orders Last 24 Hours: My Active Orders 04/19/18 17:07 Tibia Fibula Lt [CR] Stat - Assessment/Plan Last 24 Hours: My Active Orders 04/19/18 17:07 Tibia Fibula Lt [CR] Stat Assessment:: Lower leg contusion / fall Plan: Xray reviewed with patient. No acute fracture or dislocation seen on plain film. Dx leg contusion. Recommend rest, elevate, and ice several times a day. Use Tylenol/Advil as needed for pain. See PCP as symptoms warrant
--- NOTE | 2018-04-19 17:39 | CR ---
[id number] RAD/RAD Tibia Fibula Left Exam: RAD Tibia Fibula Left Indication:FALL, LOWER LEG PAIN Comparison: No prior imaging for comparison. Discussion: Soft tissue edema in the lower leg. No fracture or osseous lesion. Impression: As above. Dagoberto Calle MD 04/19/18 [id number] Thank you for allowing us to participate in the care of your patient.
== END 2018-04-19 17:40 | disposition home or self-care (01) ==
LOC: VM.ED 16:54
DX: S80.12XA Contusion of left lower leg, initial encounter (principal); F41.9 Anxiety disorder, unspecified; F32.9 Major depressive disorder, single episode, unspecified; Z79.899 Other long term (current) drug therapy; W19.XXXA Unspecified fall, initial encounter
CPT/HCPCS: 73590-LT; 99283

== ENCOUNTER 2018-07-15 13:31 | Emergency (ER) | payer MEDICAID ==
[2018-07-15 14:38] LABS: CHLORIDE,CL 106 mmol/L (98-107); SODIUM,NA 145 mmol/L (136-145)
[2018-07-15 14:41] LABS: ANION GAP 10.6 mmol/L (10-20)
[2018-07-15] MEDS ORDERED: Lactated Ringers 1,000 ML IV SCH (15:00)
--- NOTE | 2018-07-15 15:55 | EDM.PDOC ---
ED HPI GENERAL MEDICAL PROBLEM - General Chief Complaint: General Stated Complaint: weakness, incontinent Time Seen by Provider: 07/15/18 13:39 Source of Information: Reports: Patient, Other History Limitations: Reports: No Limitations - History of Present Illness INITIAL COMMENTS - FREE TEXT/NARRATIVE: Patient is brought in via EMS after his director of social services became concerned with increasing weakness, urinary incontinence and concerns that he is unable to take care of himself at home. He did have a stroke and does have residual weakness to the left side. He himself has no complaints and is questioning why he is here. He does live at the [facility]. He does not have any family available to help him and has been living with donations from [facility] as he has no income. He is mentally competent and does not wish to be admitted or to live in a nursing home facility. Denies any chest pain, headache, dizziness, sob, abdominal pain, urinary or bowel symptoms. He denies blood in urine or stool. Does utilize a walker to ambulate. Was in the ER March 2018 after a fall. This was negative for any acute injury. Onset: Gradual Associated Symptoms: Reports: No Other Symptoms - Related Data Allergies Allergy/AdvReac Type Severity Reaction Status Date / Time No Known Allergies Allergy Verified 07/15/18 14:04 Home Meds: Home Meds Mirtazapine 45 mg PO DAILY 08/30/17 [History] atorvaSTATin [Lipitor] 40 mg PO DAILY 08/30/17 [History] Past Medical History Cardiovascular History: Reports: High Cholesterol Musculoskeletal History: Reports: Other (See Below) Other Musculoskeletal History: L sided weakness Neurological History: Reports: CVA Psychiatric History: Reports: Anxiety, Depression Social & Family History - Family History Family Medical History: Noncontributory - Tobacco Use Smoking Status *Q: Current Every Day Smoker Years of Tobacco use: 42 Packs/Tins Daily: 0.5 - Recreational Drug Use Recreational Drug Use: No ED ROS GENERAL - Review of Systems Review Of Systems: See Below Constitutional: Reports: No Symptoms HEENT: Reports: No Symptoms Respiratory: Reports: No Symptoms Cardiovascular: Reports: No Symptoms Endocrine: Reports: No Symptoms GI/Abdominal: Reports: No Symptoms : Reports: No Symptoms Musculoskeletal: Reports: No Symptoms Skin: Reports: No Symptoms Neurological: Reports: No Symptoms Psychiatric: Reports: No Symptoms Hematologic/Lymphatic: Reports: No Symptoms Immunologic: Reports: No Symptoms ED EXAM, GENERAL - Physical Exam Exam: See Below Exam Limited By: Physical Impairment (does have residual speech difficulty. Is understandable.) General Appearance: Alert, WD/WN, No Apparent Distress Eye Exam: Bilateral Eye: EOMI, Normal Inspection Ears: Normal TMs Nose: Normal Inspection, Normal Mucosa, No Blood Throat/Mouth: Normal Inspection, Normal Lips, Normal Teeth, Normal Gums, Normal Oropharynx, Normal Voice, No Airway Compromise Head: Atraumatic, Normocephalic Neck: Normal Inspection, Supple, Non-Tender, Full Range of Motion Respiratory/Chest: No Respiratory Distress, Lungs Clear, Normal Breath Sounds, No Accessory Muscle Use, Chest Non-Tender Cardiovascular: Normal Peripheral Pulses, Regular Rate, Rhythm, No Edema, No Gallop, No JVD, No Murmur, No Rub Peripheral Pulses: 2+: Posterior Tibial (L), Posterior Tibial (R), Dorsalis Pedis (L), Dorsalis Pedis (R) GI/Abdominal: Normal Bowel Sounds, Soft, Non-Tender, No Organomegaly, No Distention, No Abnormal Bruit, No Mass (Male) Exam: Other (incontinent of urine) Back Exam: Normal Inspection, Full Range of Motion, NT Neurological: Alert, Oriented, CN II-XII Intact, Normal Cognition, Slow to Respond, Other (generalized weakness, left greater than right) Psychiatric: Normal Affect, Normal Mood Skin Exam: Warm, Dry, Intact, Normal Color, No Rash Lymphatic: No Adenopathy Course - Vital Signs Last Recorded V/S: Last Vital Signs Temp 36.6 C 07/15/18 13:50 Pulse 64 07/15/18 13:50 Resp 16 07/15/18 13:50 BP 95/43 L 07/15/18 13:50 Pulse Ox 99 07/15/18 13:50 - Orders/Labs/Meds Labs: Laboratory Tests 07/15/18 07/15/18 07/15/18 Range/Units 13:55 13:55 13:55 WBC 6.8 (4.0-10.0) x10^3/uL RBC 3.99 L (4.5-6.0) x10^6/uL Hgb 12.3 L (14.0-18.0) g/dL Hct 38.5 L (40.0-52.0) % MCV 96.5 H (78.0-93.0) fL MCH 30.8 (26.0-32.0) pg MCHC 31.9 L (32.0-36.0) g/dL RDW Coeff of Karl 13.2 (10.0-15.0) % Plt Count 126 L (130-400) x10^3/uL Neut % (Auto) 59.3 (50.0-80.0) % Lymph % (Auto) 24.8 L (25.0-50.0) % Stone % (Auto) 10.3 (2.0-11.0) % Eos % (Auto) 5.3 H (0.0-4.0) % Baso % (Auto) 0.3 (0.2-1.2) % PT 10.9 (10.0-12.8) SEC INR 1.0 L (2.0-3.5) Sodium 145 (136-145) mmol/L Potassium 3.6 (3.5-5.1) mmol/L Chloride 106 (98-107) mmol/L Carbon Dioxide 32 (21-32) mmol/L Anion Gap 10.6 (10-20) mmol/L BUN 20 H (7-18) mg/dL Creatinine 1.2 (0.70-1.30) mg/dL Est Cr Clr Drug Dosing 82.11 mL/min Estimated GFR (MDRD) > 60 Glucose 95 (74-106) mg/dL Calcium 8.5 (8.5-10.1) mg/dL Corrected Calcium 9.06 (8.5-10.1) mg/dL Total Bilirubin 0.8 (0.2-1.0) mg/dL AST 21 (15-37) U/L ALT 18 (16-63) U/L Alkaline Phosphatase 97 (46-116) U/L Creatine Kinase 129 (39-308) U/L Troponin I 0.017 (<=0.056) ng/mL C-Reactive Protein 0.5 (<=0.9) mg/dL NT-Pro-B Natriuret Pep 342 H (<=125) pg/mL Total Protein 7.1 (6.4-8.2) g/dL Albumin 3.3 L (3.4-5.0) g/dL Globulin 3.8 Albumin/Globulin Ratio 0.87 TSH, Ultra Sensitive 2.289 (0.358-3.74) uIU/mL Urine Color (YELLOW) Urine Appearance (CLEAR) Urine pH (5.0-8.0) Ur Specific [place] Urine Protein (NEGATIVE) mg/dL Urine Glucose (UA) (NEGATIVE) mg/dL Urine Ketones (NEGATIVE) mg/dL Urine Occult Blood (NEGATIVE) Urine Nitrite (NEGATIVE) Urine Bilirubin (NEGATIVE) Urine Urobilinogen (0.2) EU/dL Ur Leukocyte Esterase (NEGATIVE) Urine RBC (NOT SEEN) /HPF Urine WBC (NOT SEEN) /HPF Ur Squamous Epith Cells (NEGATIVE) /HPF Amorphous Sediment Urine Bacteria (NEGATIVE) /HPF Hyaline Casts (NEGATIVE) /HPF Urine Mucus (NEGATIVE) /LPF 07/15/18 Range/Units 15:00 WBC (4.0-10.0) x10^3/uL RBC (4.5-6.0) x10^6/uL Hgb (14.0-18.0) g/dL Hct (40.0-52.0) % MCV (78.0-93.0) fL MCH (26.0-32.0) pg MCHC (32.0-36.0) g/dL RDW Coeff of Karl (10.0-15.0) % Plt Count (130-400) x10^3/uL Neut % (Auto) (50.0-80.0) % Lymph % (Auto) (25.0-50.0) % Stone % (Auto) (2.0-11.0) % Eos % (Auto) (0.0-4.0) % Baso % (Auto) (0.2-1.2) % PT (10.0-12.8) SEC INR (2.0-3.5) Sodium (136-145) mmol/L Potassium (3.5-5.1) mmol/L Chloride (98-107) mmol/L Carbon Dioxide (21-32) mmol/L Anion Gap (10-20) mmol/L BUN (7-18) mg/dL Creatinine (0.70-1.30) mg/dL Est Cr Clr Drug Dosing mL/min Estimated GFR (MDRD) Glucose (74-106) mg/dL Calcium (8.5-10.1) mg/dL Corrected Calcium (8.5-10.1) mg/dL Total Bilirubin (0.2-1.0) mg/dL AST (15-37) U/L ALT (16-63) U/L Alkaline Phosphatase (46-116) U/L Creatine Kinase (39-308) U/L Troponin I (<=0.056) ng/mL C-Reactive Protein (<=0.9) mg/dL NT-Pro-B Natriuret Pep (<=125) pg/mL Total Protein (6.4-8.2) g/dL Albumin (3.4-5.0) g/dL Globulin Albumin/Globulin Ratio TSH, Ultra Sensitive (0.358-3.74) uIU/mL Urine Color Dark yellow H (YELLOW) Urine Appearance Slightly cloudy H (CLEAR) Urine pH 7.0 (5.0-8.0) Ur Specific [place] 1.015 Urine Protein Trace H (NEGATIVE) mg/dL Urine Glucose (UA) Negative (NEGATIVE) mg/dL Urine Ketones Negative (NEGATIVE) mg/dL Urine Occult Blood Negative (NEGATIVE) Urine Nitrite Negative (NEGATIVE) Urine Bilirubin Negative (NEGATIVE) Urine Urobilinogen 0.2 (0.2) EU/dL Ur Leukocyte Esterase Negative (NEGATIVE) Urine RBC 0-5 (NOT SEEN) /HPF Urine WBC 0-5 (NOT SEEN) /HPF Ur Squamous Epith Cells Not seen (NEGATIVE) /HPF Amorphous Sediment Moderate Urine Bacteria Not seen (NEGATIVE) /HPF Hyaline Casts Rare H (NEGATIVE) /HPF Urine Mucus Rare H (NEGATIVE) /LPF Meds: Medications Discontinued Medications Generic Name Dose Route Start Last Admin Trade Name Aakash PRN Reason Stop Dose Admin Lactated Ringer's 1,000 mls @ 999 mls/hr 07/15/18 15:00 07/15/18 14:55 Ringers, Lactated IV 999 mls/hr ASDIRECTED [facility] Administration - Re-Assessments/Exams Free Text/Narrative Re-Assessment/Exam: 07/15/18 15:58 Labwork negative for any acute process. Yolanda from social work here to discuss options with his director of social services Shalonda De Guzman. He is currently not enrolled in Medicaid. She will start the application process with him so he can have in home services that he is eligible for. Departure - Departure Time of Disposition: 16:40 Disposition: Home, Self-Care 01 Condition: Fair Clinical Impression: History of CVA with residual deficit - Discharge Information *PRESCRIPTION DRUG MONITORING PROGRAM REVIEWED*: Not Applicable *COPY OF PRESCRIPTION DRUG MONITORING REPORT IN PATIENT SAMANTHA: Not Applicable Referrals: Cody Abdul PA-C [Primary Care Provider] - Forms: ED Department Discharge Additional Instructions: Plan 1. Follow up with your primary care provider as appropriate 2. You do need to have adaptations made to your home. [facility] should be able to find you resources for this and Yolanda jackson start a Medicaid application for you. 3. If you at any time feel unsafe to continue to live at home you do need to discuss this with your primary care provider as well as social sciences chair 4. I do not have any medically indicated reason for inpatient or observation admission. 5. Please call if you have any additional questions or concerns. - Problem List & Annotations (1) History of CVA with residual deficit SNOMED Code(s): 320800898 Code(s): I69.30 - UNSPECIFIED SEQUELAE OF CEREBRAL INFARCTION Status: Acute Priority: Medium - Problem List Review Problem List Initiated/Reviewed/Updated: Yes - Assessment/Plan Assessment:: residual weakness from CVA, left side Plan: Plan 1. Follow up with your primary care provider as appropriate 2. You do need to have adaptations made to your home. [facility] should be able to find you resources for this and Yolanda jackson start a Medicaid application for you. 3. If you at any time feel unsafe to continue to live at home you do need to discuss this with your primary care provider as well as social sciences chair 4. I do not have any medically indicated reason for inpatient or observation admission. 5. Please call if you have any additional questions or concerns.
== END 2018-07-15 16:40 | disposition home or self-care (01) ==
LOC: VM.ED 13:31
DX: I69.354 Hemiplegia and hemiparesis following cerebral infarction affecting left non-dominant side (principal); F17.210 Nicotine dependence, cigarettes, uncomplicated; F41.9 Anxiety disorder, unspecified; F32.9 Major depressive disorder, single episode, unspecified; Z79.899 Other long term (current) drug therapy
CPT/HCPCS: 36415; 80053; 81001; 82550; 83880; 84443; 84484; 85025; 85610; 86140; 96360; 96361; 99285; J7120

== ENCOUNTER 2018-10-25 17:39 | Observation (INO) | payer MEDICAID ==
[2018-10-25] MEDS ORDERED: Sodium Chloride 0.9% 1,000 ML IV ONE (17:51)
--- NOTE | 2018-10-25 18:33 | CR ---
[id number] RAD/RAD Chest PA or AP 1V EXAM: RAD Chest PA or AP 1V INDICATION: WEAKNESS. COMPARISON: CT from August 2017. DISCUSSION: Cardiomediastinal silhouette is normal in size and contour. No infiltrate, effusion, pneumothorax, or edema. IMPRESSION: Negative examination of the chest. Dagoberto Calle MD 10/25/18 1213 Thank you for allowing us to participate in the care of your patient.
[2018-10-25 18:38] LABS: CHLORIDE,CL 106 mmol/L (98-107); SODIUM,NA 144 mmol/L (136-145)
[2018-10-25 18:39] LABS: ANION GAP 11.3 mmol/L (10-20)
--- NOTE | 2018-10-25 19:37 | EDM.PDOC ---
ED HPI GENERAL MEDICAL PROBLEM - General Chief Complaint: General Time Seen by Provider: 10/25/18 17:39 Source of Information: Reports: Patient History Limitations: Reports: No Limitations - History of Present Illness INITIAL COMMENTS - FREE TEXT/NARRATIVE: Pt. presents to ER via EMS. Neighbor of patient was concerned that that patient had not picked up his groceries that were outside his door and called police for a welfare check. 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 A welfare check was requested yesterday as well for this patient, but he refused medical treatment. In reviewing his chart, it appears he is often seen in ER for weakness and falls. He has a social professionals through the [facility]. He states that he has never been in a LTC facility. Pt. does state that he has not been any more weak than normal. He states that he has been eating and drinking. Denies any fever or chills. No chest pain or shortness of breath. No nausea, vomiting, or diarrhea. He states that he has fallen several times in the past several days. Denies striking his head or experiencing any neck pain. Pt. has a slow, halting speech pattern that is no different than normal. Onset: Today Onset Date: 10/25/18 Location: Reports: Generalized - Related Data Allergies Allergy/AdvReac Type Severity Reaction Status Date / Time No Known Allergies Allergy Verified 07/15/18 14:04 Home Meds: Home Meds Mirtazapine 45 mg PO DAILY 08/30/17 [History] atorvaSTATin [Lipitor] 40 mg PO DAILY 08/30/17 [History] Ibuprofen 800 mg PO TID PRN 10/25/18 [History] Past Medical History Cardiovascular History: Reports: High Cholesterol Musculoskeletal History: Reports: Other (See Below) Other Musculoskeletal History: L sided weakness Neurological History: Reports: CVA Psychiatric History: Reports: Anxiety, Depression Other Endocrine/Metabolic History: Raheem disease Social & Family History - Family History Family Medical History: Noncontributory - Tobacco Use Smoking Status *Q: Unknown Ever Smoked ED ROS GENERAL - Review of Systems Review Of Systems: See Below Constitutional: Reports: No Symptoms HEENT: Reports: No Symptoms Respiratory: Reports: No Symptoms Cardiovascular: Reports: No Symptoms Endocrine: Reports: No Symptoms GI/Abdominal: Reports: No Symptoms : Reports: No Symptoms Musculoskeletal: Reports: Muscle Stiffness Skin: Reports: No Symptoms Neurological: Reports: Other (Prior CVA, Raheem's disease causing severe weakness and spasticity) Psychiatric: Reports: No Symptoms Hematologic/Lymphatic: Reports: No Symptoms Immunologic: Reports: No Symptoms ED EXAM, GENERAL - Physical Exam Exam: See Below Exam Limited By: No Limitations General Appearance: Alert, Cachetic, Other (extremely weak, unable to stand without assistance.) Eye Exam: Bilateral Eye: EOMI, Normal Fundi, Normal Inspection, PERRL Throat/Mouth: Normal Inspection, Normal Lips, Normal Teeth, Normal Gums, Normal Oropharynx, Normal Voice, No Airway Compromise Head: Atraumatic, Normocephalic Neck: Normal Inspection, Supple, Non-Tender, Full Range of Motion Respiratory/Chest: No Respiratory Distress, Lungs Clear, Normal Breath Sounds, No Accessory Muscle Use, Chest Non-Tender Cardiovascular: Normal Peripheral Pulses, Regular Rate, Rhythm, No Edema, No Gallop, No JVD, No Murmur, No Rub GI/Abdominal: Normal Bowel Sounds, Soft, Non-Tender, No Organomegaly, No Distention, No Abnormal Bruit, No Mass (Male) Exam: Deferred Rectal (Males) Exam: Deferred Back Exam: Full Range of Motion Extremities: Normal Inspection, Normal Range of Motion, Non-Tender, No Pedal Edema, Normal Capillary Refill Neurological: Alert, Oriented, CN II-XII Intact, Normal Cognition, Other ( weakness on L due to prior CVA, severe global weakness and spasticity on the R.) Psychiatric: Normal Affect, Normal Mood Skin Exam: Warm, Dry, Intact, No Rash, Pallor EKG INTERPRETATION Rhythm: NSR [place]: Normal P-Wave: Present QRS: Normal ST-T: Normal QT: Normal Course - Vital Signs Last Recorded V/S: Last Vital Signs Temp 37.1 C 10/25/18 17:39 Pulse 68 10/25/18 17:39 Resp 18 10/25/18 17:39 BP 122/52 L 10/25/18 17:39 Pulse Ox 98 10/25/18 17:39 - Orders/Labs/Meds Orders: Active Orders 24 hr Category Date Time Status Patient Status [ADT] Routine ADT 10/25/18 19:15 Ordered EKG Documentation Completion [RC] STAT Care 10/25/18 17:47 Active CULTURE BLOOD [BC] Stat Lab 10/25/18 18:04 Received CULTURE BLOOD [BC] Stat Lab 10/25/18 18:08 Received Blood Culture x2 Reflex Set [OM.PC] Stat Oth 10/25/18 17:51 Ordered Labs: Laboratory Tests 10/25/18 10/25/18 10/25/18 Range/Units 18:04 18:04 18:04 WBC 5.2 (4.0-10.0) x10^3/uL RBC 3.90 L (4.5-6.0) x10^6/uL Hgb 12.2 L (14.0-18.0) g/dL Hct 36.1 L (40.0-52.0) % MCV 92.6 D (78.0-93.0) fL MCH 31.3 (26.0-32.0) pg MCHC 33.8 (32.0-36.0) g/dL RDW Coeff of Kral 12.7 (10.0-15.0) % Plt Count 121 L (130-400) x10^3/uL Neut % (Auto) 50.8 (50.0-80.0) % Lymph % (Auto) 30.1 (25.0-50.0) % Ralls % (Auto) 11.6 H (2.0-11.0) % Eos % (Auto) 6.9 H (0.0-4.0) % Baso % (Auto) 0.6 (0.2-1.2) % PT 11.0 (10.0-12.8) SEC INR 1.0 L (2.0-3.5) Sodium 144 (136-145) mmol/L Potassium 3.3 L (3.5-5.1) mmol/L Chloride 106 (98-107) mmol/L Carbon Dioxide 30 (21-32) mmol/L Anion Gap 11.3 (10-20) mmol/L BUN 27 H (7-18) mg/dL Creatinine 1.3 (0.70-1.30) mg/dL Est Cr Clr Drug Dosing TNP Estimated GFR (MDRD) 59 Glucose 118 H (74-106) mg/dL Lactic Acid (0.4-2.0) mmol/L Calcium 8.7 (8.5-10.1) mg/dL Corrected Calcium 9.26 (8.5-10.1) mg/dL Phosphorus 3.5 (2.6-4.7) mg/dL Magnesium 1.9 (1.8-2.4) mg/dL Total Bilirubin 0.8 (0.2-1.0) mg/dL AST 54 H (15-37) U/L ALT 48 (16-63) U/L Alkaline Phosphatase 104 (46-116) U/L Troponin I < 0.017 (<=0.056) ng/mL C-Reactive Protein < 0.2 (<=0.9) mg/dL Total Protein 6.4 (6.4-8.2) g/dL Albumin 3.3 L (3.4-5.0) g/dL Globulin 3.1 Albumin/Globulin Ratio 1.06 Urine Color (YELLOW) Urine Appearance (CLEAR) Urine pH (5.0-8.0) Ur Specific [place] Urine Protein (NEGATIVE) mg/dL Urine Glucose (UA) (NEGATIVE) mg/dL Urine Ketones (NEGATIVE) mg/dL Urine Occult Blood (NEGATIVE) Urine Nitrite (NEGATIVE) Urine Bilirubin (NEGATIVE) Urine Urobilinogen (0.2) EU/dL Ur Leukocyte Esterase (NEGATIVE) Urine RBC (NOT SEEN) /HPF Urine WBC (NOT SEEN) /HPF Ur Squamous Epith Cells (NEGATIVE) /HPF Calcium Oxalate Crystal (NEGATIVE) /HPF Urine Bacteria (NEGATIVE) /HPF Urine Mucus (NEGATIVE) /LPF 10/25/18 10/25/18 Range/Units 18:04 18:54 WBC (4.0-10.0) x10^3/uL RBC (4.5-6.0) x10^6/uL Hgb (14.0-18.0) g/dL Hct (40.0-52.0) % MCV (78.0-93.0) fL MCH (26.0-32.0) pg MCHC (32.0-36.0) g/dL RDW Coeff of Karl (10.0-15.0) % Plt Count (130-400) x10^3/uL Neut % (Auto) (50.0-80.0) % Lymph % (Auto) (25.0-50.0) % Ralls % (Auto) (2.0-11.0) % Eos % (Auto) (0.0-4.0) % Baso % (Auto) (0.2-1.2) % PT (10.0-12.8) SEC INR (2.0-3.5) Sodium (136-145) mmol/L Potassium (3.5-5.1) mmol/L Chloride (98-107) mmol/L Carbon Dioxide (21-32) mmol/L Anion Gap (10-20) mmol/L BUN (7-18) mg/dL Creatinine (0.70-1.30) mg/dL Est Cr Clr Drug Dosing Estimated GFR (MDRD) Glucose (74-106) mg/dL Lactic Acid 2.0 (0.4-2.0) mmol/L Calcium (8.5-10.1) mg/dL Corrected Calcium (8.5-10.1) mg/dL Phosphorus (2.6-4.7) mg/dL Magnesium (1.8-2.4) mg/dL Total Bilirubin (0.2-1.0) mg/dL AST (15-37) U/L ALT (16-63) U/L Alkaline Phosphatase (46-116) U/L Troponin I (<=0.056) ng/mL C-Reactive Protein (<=0.9) mg/dL Total Protein (6.4-8.2) g/dL Albumin (3.4-5.0) g/dL Globulin Albumin/Globulin Ratio Urine Color Laurence H (YELLOW) Urine Appearance Clear (CLEAR) Urine pH 6.0 (5.0-8.0) Ur Specific [place] 1.025 Urine Protein 30 H (NEGATIVE) mg/dL Urine Glucose (UA) Negative (NEGATIVE) mg/dL Urine Ketones Negative (NEGATIVE) mg/dL Urine Occult Blood Trace-lysed H (NEGATIVE) Urine Nitrite Negative (NEGATIVE) Urine Bilirubin Small H (NEGATIVE) Urine Urobilinogen 0.2 (0.2) EU/dL Ur Leukocyte Esterase Negative (NEGATIVE) Urine RBC 0-5 (NOT SEEN) /HPF Urine WBC 0-5 (NOT SEEN) /HPF Ur Squamous Epith Cells Rare (NEGATIVE) /HPF Calcium Oxalate Crystal Few H (NEGATIVE) /HPF Urine Bacteria Not seen (NEGATIVE) /HPF Urine Mucus Many H (NEGATIVE) /LPF Meds: Medications Discontinued Medications Generic Name Dose Route Start Last Admin Trade Name Freq PRN Reason Stop Dose Admin Sodium Chloride 1,000 mls @ 1,000 mls/hr 10/25/18 17:51 10/25/18 18:00 Normal Saline IV 10/25/18 18:50 1,000 mls/hr .BOLUS ONE Administration - Radiology Interpretation Free Text/Narrative:: Chest xray negative for acute pathology Departure - Departure Time of Disposition: 07:57 Disposition: Refer to Observation Clinical Impression: Weakness, Dehydration - Discharge Information Referrals: Cody Abdul PA-C [Primary Care Provider] - - Problem List Review Problem List Initiated/Reviewed/Updated: Yes - My Orders Last 24 Hours: My Active Orders 10/25/18 17:47 EKG Documentation Completion [RC] STAT 10/25/18 17:51 Blood Culture x2 Reflex Set [OM.PC] Stat 10/25/18 18:04 CULTURE BLOOD [BC] Stat 10/25/18 18:08 CULTURE BLOOD [BC] Stat 10/25/18 19:15 Patient Status [ADT] Routine - Assessment/Plan Last 24 Hours: My Active Orders 10/25/18 17:47 EKG Documentation Completion [RC] STAT 10/25/18 17:51 Blood Culture x2 Reflex Set [OM.PC] Stat 10/25/18 18:04 CULTURE BLOOD [BC] Stat 10/25/18 18:08 CULTURE BLOOD [BC] Stat 10/25/18 19:15 Patient Status [ADT] Routine Plan: Pt. was given 1500ml NS in ER. He initially had low urine output and specific gravity was 1.025 after the 2 liters, so he is obviously quite dehydrated. Pt. is not same to be at home alone. Will rehydrate the patient overnight and reevaluate the patient tomorrow. Will attempt to make contact with his [employer], as the patient likely needs to be in a LTC facility. All questions were answered.
[2018-10-25] MEDS: D5 1/2 NS w/ 40 mEq/L KCl 1,000 ML IV SCH (20:16)
[2018-10-25] MEDS ORDERED: Non-Formulary Medication 1 Each (Ibuprofen [Ibuprofen] 800 MG) PO PRN (20:26)
[2018-10-25] MEDS: Mirtazapine 30 MG Tab PO SCH (23:40)
[2018-10-25] MEDS: atorvaSTATin 40 MG Tab PO SCH (23:40)
[2018-10-25] MEDS: Ibuprofen 200 MG Tab PO PRN (23:42)
[2018-10-26] MEDS: D5 1/2 NS w/ 40 mEq/L KCl 1,000 ML IV SCH (06:42)
[2018-10-26] MEDS: Ibuprofen 200 MG Tab PO PRN (07:57)
[2018-10-26] MEDS ORDERED: Mirtazapine 30 MG Tab PO SCH (08:00)
[2018-10-26] MEDS ORDERED: atorvaSTATin 40 MG Tab PO SCH (08:00)
[2018-10-26 08:19] LABS: CHLORIDE,CL 110 mmol/L (98-107); SODIUM,NA 146 mmol/L (136-145)
[2018-10-26 08:20] LABS: ANION GAP 9.9 mmol/L (10-20)
--- NOTE | 2018-10-26 09:18 | PCM.PN ---
- General Info Date of Service: 10/26/18 Admission Dx/Problem (Free Text): Weakness Dehydration Subjective Update: Patient offers no specific complaints. He states he still feels very weak, but better since admission. No concerns with urination or BM's. Tolerating diet ok. VSS and afebrile. Denies any pain. Patient states he is resting comfortably. Functional Status: Reports: Pain Controlled, Tolerating Diet, Urinating Pain Score: 0 - Review of Systems General: Reports: Weakness. Denies: Fever, Chills Pulmonary: Denies: Shortness of Breath, Cough Cardiovascular: Denies: Chest Pain, Palpitations Gastrointestinal: Denies: Abdominal Pain, Nausea, Vomiting Skin: Reports: No Symptoms Neurological: Reports: No Symptoms - Patient Data Vitals - Most Recent: Last Vital Signs Temp 97.4 F 10/26/18 06:00 Pulse 54 L 10/26/18 06:00 Resp 16 10/26/18 06:00 BP 107/69 10/26/18 06:00 Pulse Ox 99 10/26/18 06:00 Weight - Most Recent: 153 lb 9.6 oz I&O - Last 24 Hours: Intake & Output 10/25/18 10/26/18 10/26/18 22:59 06:59 14:59 Intake Total 1319 Output Total 550 Balance 769 Lab Results Last 24 Hours: Laboratory Results - last 24 hr 10/25/18 10/25/18 10/25/18 Range/Units 18:04 18:04 18:04 WBC 5.2 (4.0-10.0) x10^3/uL RBC 3.90 L (4.5-6.0) x10^6/uL Hgb 12.2 L (14.0-18.0) g/dL Hct 36.1 L (40.0-52.0) % MCV 92.6 D (78.0-93.0) fL MCH 31.3 (26.0-32.0) pg MCHC 33.8 (32.0-36.0) g/dL RDW Coeff of Karl 12.7 (10.0-15.0) % Plt Count 121 L (130-400) x10^3/uL Neut % (Auto) 50.8 (50.0-80.0) % Lymph % (Auto) 30.1 (25.0-50.0) % Stark % (Auto) 11.6 H (2.0-11.0) % Eos % (Auto) 6.9 H (0.0-4.0) % Baso % (Auto) 0.6 (0.2-1.2) % PT 11.0 (10.0-12.8) SEC INR 1.0 L (2.0-3.5) Sodium 144 (136-145) mmol/L Potassium 3.3 L (3.5-5.1) mmol/L Chloride 106 (98-107) mmol/L Carbon Dioxide 30 (21-32) mmol/L Anion Gap 11.3 (10-20) mmol/L BUN 27 H (7-18) mg/dL Creatinine 1.3 (0.70-1.30) mg/dL Est Cr Clr Drug Dosing TNP Estimated GFR (MDRD) 59 Glucose 118 H (74-106) mg/dL Lactic Acid (0.4-2.0) mmol/L Calcium 8.7 (8.5-10.1) mg/dL Corrected Calcium 9.26 (8.5-10.1) mg/dL Phosphorus 3.5 (2.6-4.7) mg/dL Magnesium 1.9 (1.8-2.4) mg/dL Total Bilirubin 0.8 (0.2-1.0) mg/dL AST 54 H (15-37) U/L ALT 48 (16-63) U/L Alkaline Phosphatase 104 (46-116) U/L Troponin I < 0.017 (<=0.056) ng/mL C-Reactive Protein < 0.2 (<=0.9) mg/dL Total Protein 6.4 (6.4-8.2) g/dL Albumin 3.3 L (3.4-5.0) g/dL Globulin 3.1 Albumin/Globulin Ratio 1.06 Urine Color (YELLOW) Urine Appearance (CLEAR) Urine pH (5.0-8.0) Ur Specific [place] Urine Protein (NEGATIVE) mg/dL Urine Glucose (UA) (NEGATIVE) mg/dL Urine Ketones (NEGATIVE) mg/dL Urine Occult Blood (NEGATIVE) Urine Nitrite (NEGATIVE) Urine Bilirubin (NEGATIVE) Urine Urobilinogen (0.2) EU/dL Ur Leukocyte Esterase (NEGATIVE) Urine RBC (NOT SEEN) /HPF Urine WBC (NOT SEEN) /HPF Ur Squamous Epith Cells (NEGATIVE) /HPF Calcium Oxalate Crystal (NEGATIVE) /HPF Urine Bacteria (NEGATIVE) /HPF Urine Mucus (NEGATIVE) /LPF 10/25/18 10/25/18 10/26/18 Range/Units 18:04 18:54 07:57 WBC 4.3 (4.0-10.0) x10^3/uL RBC 4.24 L (4.5-6.0) x10^6/uL Hgb 13.1 L (14.0-18.0) g/dL Hct 39.4 L (40.0-52.0) % MCV 92.9 (78.0-93.0) fL MCH 30.9 (26.0-32.0) pg MCHC 33.2 (32.0-36.0) g/dL RDW Coeff of Karl 13.1 (10.0-15.0) % Plt Count 111 L (130-400) x10^3/uL Neut % (Auto) 48.4 L (50.0-80.0) % Lymph % (Auto) 34.8 (25.0-50.0) % Stark % (Auto) 9.8 (2.0-11.0) % Eos % (Auto) 6.5 H (0.0-4.0) % Baso % (Auto) 0.5 (0.2-1.2) % PT (10.0-12.8) SEC INR (2.0-3.5) Sodium (136-145) mmol/L Potassium (3.5-5.1) mmol/L Chloride (98-107) mmol/L Carbon Dioxide (21-32) mmol/L Anion Gap (10-20) mmol/L BUN (7-18) mg/dL Creatinine (0.70-1.30) mg/dL Est Cr Clr Drug Dosing Estimated GFR (MDRD) Glucose (74-106) mg/dL Lactic Acid 2.0 (0.4-2.0) mmol/L Calcium (8.5-10.1) mg/dL Corrected Calcium (8.5-10.1) mg/dL Phosphorus (2.6-4.7) mg/dL Magnesium (1.8-2.4) mg/dL Total Bilirubin (0.2-1.0) mg/dL AST (15-37) U/L ALT (16-63) U/L Alkaline Phosphatase (46-116) U/L Troponin I (<=0.056) ng/mL C-Reactive Protein (<=0.9) mg/dL Total Protein (6.4-8.2) g/dL Albumin (3.4-5.0) g/dL Globulin Albumin/Globulin Ratio Urine Color [place] H (YELLOW) Urine Appearance Clear (CLEAR) Urine pH 6.0 (5.0-8.0) Ur Specific [place] 1.025 Urine Protein 30 H (NEGATIVE) mg/dL Urine Glucose (UA) Negative (NEGATIVE) mg/dL Urine Ketones Negative (NEGATIVE) mg/dL Urine Occult Blood Trace-lysed H (NEGATIVE) Urine Nitrite Negative (NEGATIVE) Urine Bilirubin Small H (NEGATIVE) Urine Urobilinogen 0.2 (0.2) EU/dL Ur Leukocyte Esterase Negative (NEGATIVE) Urine RBC 0-5 (NOT SEEN) /HPF Urine WBC 0-5 (NOT SEEN) /HPF Ur Squamous Epith Cells Rare (NEGATIVE) /HPF Calcium Oxalate Crystal Few H (NEGATIVE) /HPF Urine Bacteria Not seen (NEGATIVE) /HPF Urine Mucus Many H (NEGATIVE) /LPF 10/26/18 Range/Units 07:57 WBC (4.0-10.0) x10^3/uL RBC (4.5-6.0) x10^6/uL Hgb (14.0-18.0) g/dL Hct (40.0-52.0) % MCV (78.0-93.0) fL MCH (26.0-32.0) pg MCHC (32.0-36.0) g/dL RDW Coeff of Karl (10.0-15.0) % Plt Count (130-400) x10^3/uL Neut % (Auto) (50.0-80.0) % Lymph % (Auto) (25.0-50.0) % Stark % (Auto) (2.0-11.0) % Eos % (Auto) (0.0-4.0) % Baso % (Auto) (0.2-1.2) % PT (10.0-12.8) SEC INR (2.0-3.5) Sodium 146 H (136-145) mmol/L Potassium 3.9 (3.5-5.1) mmol/L Chloride 110 H (98-107) mmol/L Carbon Dioxide 30 (21-32) mmol/L Anion Gap 9.9 L (10-20) mmol/L BUN 17 (7-18) mg/dL Creatinine 1.1 (0.70-1.30) mg/dL Est Cr Clr Drug Dosing 80.93 Estimated GFR (MDRD) > 60 Glucose 87 (74-106) mg/dL Lactic Acid (0.4-2.0) mmol/L Calcium 8.6 (8.5-10.1) mg/dL Corrected Calcium (8.5-10.1) mg/dL Phosphorus (2.6-4.7) mg/dL Magnesium (1.8-2.4) mg/dL Total Bilirubin (0.2-1.0) mg/dL AST (15-37) U/L ALT (16-63) U/L Alkaline Phosphatase (46-116) U/L Troponin I (<=0.056) ng/mL C-Reactive Protein (<=0.9) mg/dL Total Protein (6.4-8.2) g/dL Albumin (3.4-5.0) g/dL Globulin Albumin/Globulin Ratio Urine Color (YELLOW) Urine Appearance (CLEAR) Urine pH (5.0-8.0) Ur Specific [place] Urine Protein (NEGATIVE) mg/dL Urine Glucose (UA) (NEGATIVE) mg/dL Urine Ketones (NEGATIVE) mg/dL Urine Occult Blood (NEGATIVE) Urine Nitrite (NEGATIVE) Urine Bilirubin (NEGATIVE) Urine Urobilinogen (0.2) EU/dL Ur Leukocyte Esterase (NEGATIVE) Urine RBC (NOT SEEN) /HPF Urine WBC (NOT SEEN) /HPF Ur Squamous Epith Cells (NEGATIVE) /HPF Calcium Oxalate Crystal (NEGATIVE) /HPF Urine Bacteria (NEGATIVE) /HPF Urine Mucus (NEGATIVE) /LPF Med Orders - Current: Current Medications Atorvastatin Calcium (Lipitor) 40 mg PO BEDTIME [facility] Last Admin: 10/25/18 23:40 Dose: 40 mg Potassium Chloride/Dextrose/Sod Cl (D5 1/2 Ns W/ 40 Meq/L Kcl) 1,000 mls @ 75 mls/hr IV ASDIRECTED [facility] Last Admin: 10/26/18 06:42 Dose: 100 mls/hr Ibuprofen (Motrin) 800 mg PO TID PRN PRN Reason: Pain Last Admin: 10/26/18 07:57 Dose: 800 mg Mirtazapine (Remeron) 45 mg PO BEDTIME [facility] Last Admin: 10/25/18 23:40 Dose: 45 mg Discontinued Medications Atorvastatin Calcium (Lipitor) 40 mg PO DAILY [facility] Sodium Chloride (Normal Saline) 1,000 mls @ 1,000 mls/hr IV .BOLUS ONE Stop: 10/25/18 18:50 Last Admin: 10/25/18 18:00 Dose: 1,000 mls/hr Mirtazapine (Remeron) 45 mg PO DAILY [facility] Non-Formulary Medication (Ibuprofen [Ibuprofen]) 800 mg PO TID PRN PRN Reason: Pain - Exam General: Alert, Cooperative, No Acute Distress Lungs: Clear to Auscultation, Normal Respiratory Effort Cardiovascular: Regular Rate, Regular Rhythm GI/Abdominal Exam: Normal Bowel Sounds, Soft, Non-Tender Skin: Warm, Dry, Intact Neurological: No New Focal Deficit - Problem List & Annotations (1) Dehydration SNOMED Code(s): 36262113 Code(s): E86.0 - DEHYDRATION Status: Acute Priority: Medium Current Visit: Yes (2) Weakness SNOMED Code(s): 15871060 Code(s): R53.1 - WEAKNESS Status: Acute Priority: Medium Current Visit : Yes - Problem List Review Problem List Initiated/Reviewed/Updated: Yes - Assessment Assessment:: Weakness Dehydration - Plan Plan:: Patient doing better today. Labs much improved. Tolerating diet. Plan is for social work to be contacted for possible LTC placement due to weakness and history of falls. Patient is a Code 1. Patient does wish to be transferred to a higher level of care, should the need arise. Continue with IVF for now. Recheck labs in AM. Anticipate discharge within the next 24 hours. Need to contact our social service manager to work on discharge planning.
[2018-10-26] MEDS: atorvaSTATin 40 MG Tab PO SCH (19:46)
[2018-10-26] MEDS: Mirtazapine 30 MG Tab PO SCH (19:47)
[2018-10-27] MEDS: Ibuprofen 200 MG Tab PO PRN ×2 (08:03→19:42)
[2018-10-27 08:12] LABS: CHLORIDE,CL 109 mmol/L (98-107); SODIUM,NA 144 mmol/L (136-145)
[2018-10-27 08:15] LABS: ANION GAP 9.2 mmol/L (10-20)
--- NOTE | 2018-10-27 08:28 | PCM.PN ---
- General Info Date of Service: 10/27/18 Admission Dx/Problem (Free Text): Pt. is continuing to exhibit extreme weakness, spasticity, and inability to ambulate. He requires assistance for feeding. He has been hydrated and is no longer receiving IV fluids. They have been discontinued. He is assist of 2 to the commode and has not been ambulating. Pt. meets his 48 hour observation stay cutoff late this afternoon. I did speak with Yolanda Medrano for bilingual social worker and she will be in this afternoon to place the patient on self-pay swingbed. He is too weak to go home, is unable to feed himself adequately, and again is unable to walk or transfer on his own. Pt. is resistive to this and wants to go home. Functional Status: Reports: Pain Controlled, Tolerating Diet, Urinating. Denies : Ambulating Pain Score: 0 - Review of Systems General: Reports: No Symptoms, Weakness. Denies: Fever HEENT: Reports: No Symptoms Pulmonary: Reports: No Symptoms Cardiovascular: Reports: No Symptoms Gastrointestinal: Reports: No Symptoms Genitourinary: Reports: No Symptoms Musculoskeletal: Reports: No Symptoms Skin: Reports: No Symptoms Neurological: Reports: Weakness Psychiatric: Reports: No Symptoms - Patient Data Vitals - Most Recent: Last Vital Signs Temp 36.5 C 10/27/18 06:00 Pulse 46 L 10/27/18 06:00 Resp 16 10/27/18 06:00 BP 101/56 L 10/27/18 06:00 Pulse Ox 98 10/27/18 06:00 Weight - Most Recent: 69.672 kg I&O - Last 24 Hours: Intake & Output 10/26/18 10/27/18 10/27/18 22:59 06:59 14:59 Intake Total 2019 100 Output Total 700 350 Balance 1320 -250 Lab Results Last 24 Hours: Laboratory Results - last 24 hr 10/26/18 10/27/18 Range/Units 07:57 07:48 WBC 4.3 (4.0-10.0) x10^3/uL RBC 4.24 L (4.5-6.0) x10^6/uL Hgb 13.1 L (14.0-18.0) g/dL Hct 39.4 L (40.0-52.0) % MCV 92.9 (78.0-93.0) fL MCH 30.9 (26.0-32.0) pg MCHC 33.2 (32.0-36.0) g/dL RDW Coeff of Karl 13.1 (10.0-15.0) % Plt Count 111 L (130-400) x10^3/uL Neut % (Auto) 48.4 L (50.0-80.0) % Lymph % (Auto) 34.8 (25.0-50.0) % [place] % (Auto) 9.8 (2.0-11.0) % Eos % (Auto) 6.5 H (0.0-4.0) % Baso % (Auto) 0.5 (0.2-1.2) % Sodium 144 (136-145) mmol/L Potassium 4.2 (3.5-5.1) mmol/L Chloride 109 H (98-107) mmol/L Carbon Dioxide 30 (21-32) mmol/L Anion Gap 9.2 L (10-20) mmol/L BUN 11 (7-18) mg/dL Creatinine 1.1 (0.70-1.30) mg/dL Est Cr Clr Drug Dosing 80.93 mL/min Estimated GFR (MDRD) > 60 Glucose 86 (74-106) mg/dL Calcium 8.5 (8.5-10.1) mg/dL Magnesium 1.8 (1.8-2.4) mg/dL [place] Results Last 24 Hours: Microbiology 10/25/18 18:08 Aerobic Blood Culture - Preliminary Blood - Venous - Lab Draw NO GROWTH AFTER 1 DAY Anaerobic Blood Culture - Preliminary NO GROWTH AFTER 1 DAY 10/25/18 18:04 Aerobic Blood Culture - Preliminary Blood - Venous NO GROWTH AFTER 1 DAY Anaerobic Blood Culture - Preliminary NO GROWTH AFTER 1 DAY Med Orders - Current: Current Medications Atorvastatin Calcium (Lipitor) 40 mg PO BEDTIME [facility] Last Admin: 10/26/18 19:46 Dose: 40 mg Ibuprofen (Motrin) 800 mg PO TID PRN PRN Reason: Pain Last Admin: 10/27/18 08:03 Dose: 800 mg Mirtazapine (Remeron) 45 mg PO BEDTIME [facility] Last Admin: 10/26/18 19:47 Dose: 45 mg Discontinued Medications Atorvastatin Calcium (Lipitor) 40 mg PO DAILY [facility] Sodium Chloride (Normal Saline) 1,000 mls @ 1,000 mls/hr IV .BOLUS ONE Stop: 10/25/18 18:50 Last Admin: 10/25/18 18:00 Dose: 1,000 mls/hr Potassium Chloride/Dextrose/Sod Cl (D5 1/2 Ns W/ 40 Meq/L Kcl) 1,000 mls @ 75 mls/hr IV ASDIRECTED [facility] Last Admin: 10/26/18 06:42 Dose: 100 mls/hr Mirtazapine (Remeron) 45 mg PO DAILY [facility] Non-Formulary Medication (Ibuprofen [Ibuprofen]) 800 mg PO TID PRN PRN Reason: Pain - Exam General: Alert, Oriented HEENT: Pupils Equal, Pupils Reactive, EOMI, Mucous Membr. 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 Labs much improved. Tolerating diet. Plan is for social work to be contacted for possible LTC placement due to weakness and history of falls. Patient is a Code 1. Patient does wish to be transferred to a higher level of care, should the need arise. Continue with IVF for now. Recheck labs in AM. Anticipate discharge within the next 24 hours. Need to contact our marriage and family social worker to work on discharge planning. Again, social work will consult on the patient this afternoon. Likely patient will be self-pay swing and then be transitioned to a LTC facility. Will attempt to get the patient to ambulate some today. All questions were answered.
[2018-10-27] MEDS: Mirtazapine 30 MG Tab PO SCH (19:41)
[2018-10-27] MEDS: atorvaSTATin 40 MG Tab PO SCH (19:42)
--- NOTE | 2018-10-28 02:09 | PCM.DCSUM1 ---
Discharge Summary - Hospital Course Free Text/Narrative:: This discharge summary can be used as his swing bed admission H and P. Pt. was admitted observation status due to severe weakness and dehydration. Pt. 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 On admission, the patient was also quite dehydrated. He was hypokalemic. He was rehydrated and his potassium was repleted. Despite fluid resuscitation, pt. has been an assist of 2 when moving from bed to commode. He has not ambulated at all since admission. Pt. initially was so weak he could not feed himself and is still having problems using utensils. He he great difficulty using a cup or glass and has been drinking from a straw. Pt. has been getting progressively weak over the past several months. His examination and workup did not reveal any acute cause for the weakness. When he was admitted previously, he adamantly refused admission to LTC facility, and had been getting assistance from [employer] with his ADLs twice a week. Pt. is unable to be discharged home. I spoke with Yolanda Medrano who was willing to come in on her day off to admit the patient to swingbed status. She initially placed me as the swingbed provider but will need to find a [place] doctor to follow the patient during his swingbed stay. Pt. will require social service consult for long-term care placement. PT and OT will be ordered. He will require a PT evaluation and cognitive eval prior to placement as well. Diagnosis: Stroke: No - Discharge Data Discharge Date: 10/27/18 Discharge Disposition: DC/Tfer W/I H[facility] [place] [id number] Condition: Fair - Discharge Diagnosis/Problem(s) (1) Dehydration SNOMED Code(s): 86731302 ICD Code: E86.0 - DEHYDRATION Status: Acute Priority: Medium (2) Weakness SNOMED Code(s): 31148597 ICD Code: R53.1 - WEAKNESS Status: Acute Priority: Medium - Patient Summary/Data Consults: Consultations 10/26/18 09:18 Consult to Case Management/Seat Covers Trimmer [CONS] Routine - Discharge Plan Home Medications: Home Meds Mirtazapine 45 mg PO BEDTIME 08/30/17 [History] atorvaSTATin [Lipitor] 40 mg PO BEDTIME 08/30/17 [History] Ibuprofen 800 mg PO TID PRN 10/25/18 [History] Forms: ED Department Discharge Referrals: Cody Abdul PA-C [Primary Care Provider] - - Discharge Summary/Plan Comment DC Time >30 min.: Yes Discharge Summary/Plan Comment: Pt. transitioned to swing bed. Apparently this will be covered as he is on medicaid. Observation discharge and subsequent admission to swing bed was performed. PT, OT, and social service consults were ordered. Did start the patient on SQ lovenox for DVT prophylaxis. Pt. continues to hope to be discharged home at some point, but he was informed that this is highly unlikely. All questions were answered. - General Info Functional Status: Reports: Pain Controlled - Review of Systems General: Reports: Weakness HEENT: Reports: No Symptoms Pulmonary: Reports: No Symptoms Cardiovascular: Reports: No Symptoms Gastrointestinal: Reports: No Symptoms Genitourinary: Reports: No Symptoms Musculoskeletal: Reports: No Symptoms Skin: Reports: No Symptoms Neurological: Reports: No Symptoms Psychiatric: Reports: No Symptoms - Patient Data Vitals - Most Recent: Last Vital Signs Temp 36.7 C 10/27/18 17:56 Pulse 54 L 10/27/18 17:56 Resp 16 10/27/18 17:56 BP 103/61 10/27/18 17:56 Pulse Ox 96 10/27/18 14:00 Weight - Most Recent: 69.672 kg I&O - Last 24 hours: Intake & Output 10/27/18 10/27/18 10/28/18 14:59 22:59 06:59 Intake Total 720 360 Output Total 300 Balance 420 360 Lab Results - Last 24 hrs: Laboratory Results - last 24 hr 10/27/18 10/27/18 Range/Units 07:48 07:48 WBC 4.9 (4.0-10.0) x10^3/uL RBC 4.10 L (4.5-6.0) x10^6/uL Hgb 12.8 L (14.0-18.0) g/dL Hct 38.0 L (40.0-52.0) % MCV 92.7 (78.0-93.0) fL MCH 31.2 (26.0-32.0) pg MCHC 33.7 (32.0-36.0) g/dL RDW Coeff of Karl 12.9 (10.0-15.0) % Plt Count 109 L (130-400) x10^3/uL Neut % (Auto) 54.0 (50.0-80.0) % Lymph % (Auto) 30.0 (25.0-50.0) % [place] % (Auto) 7.9 (2.0-11.0) % Eos % (Auto) 7.7 H (0.0-4.0) % Baso % (Auto) 0.4 (0.2-1.2) % Sodium 144 (136-145) mmol/L Potassium 4.2 (3.5-5.1) mmol/L Chloride 109 H (98-107) mmol/L Carbon Dioxide 30 (21-32) mmol/L Anion Gap 9.2 L (10-20) mmol/L BUN 11 (7-18) mg/dL Creatinine 1.1 (0.70-1.30) mg/dL Est Cr Clr Drug Dosing 80.93 mL/min Estimated GFR (MDRD) > 60 Glucose 86 (74-106) mg/dL Calcium 8.5 (8.5-10.1) mg/dL Magnesium 1.8 (1.8-2.4) mg/dL [place] Results - Last 24 hrs: Microbiology 10/25/18 18:08 Aerobic Blood Culture - Preliminary Blood - Venous - Lab Draw NO GROWTH AFTER 2 DAYS Anaerobic Blood Culture - Preliminary NO GROWTH AFTER 2 DAYS 10/25/18 18:04 Aerobic Blood Culture - Preliminary Blood - Venous NO GROWTH AFTER 2 DAYS Anaerobic Blood Culture - Preliminary NO GROWTH AFTER 2 DAYS Med Orders - Current: Current Medications Discontinued Medications Atorvastatin Calcium (Lipitor) 40 mg PO DAILY [facility] Atorvastatin Calcium (Lipitor) 40 mg PO BEDTIME [facility] Last Admin: 10/27/18 19:42 Dose: 40 mg Sodium Chloride (Normal Saline) 1,000 mls @ 1,000 mls/hr IV .BOLUS ONE Stop: 10/25/18 18:50 Last Admin: 10/25/18 18:00 Dose: 1,000 mls/hr Potassium Chloride/Dextrose/Sod Cl (D5 1/2 Ns W/ 40 Meq/L Kcl) 1,000 mls @ 75 mls/hr IV ASDIRECTED [facility] Last Admin: 10/26/18 06:42 Dose: 100 mls/hr Ibuprofen (Motrin) 800 mg PO TID PRN PRN Reason: Pain Last Admin: 10/27/18 19:42 Dose: 800 mg Mirtazapine (Remeron) 45 mg PO DAILY [facility] Mirtazapine (Remeron) 45 mg PO BEDTIME [facility] Last Admin: 10/27/18 19:41 Dose: 45 mg Non-Formulary Medication (Ibuprofen [Ibuprofen]) 800 mg PO TID PRN PRN Reason: Pain - Exam General: Reports: Alert, Oriented HEENT: Reports: Pupils Equal, Pupils Reactive, EOMI, Mucous Membr. Moist/[place] Neck: Reports: Supple Lungs: Reports: Clear to Auscultation, Normal Respiratory Effort Cardiovascular: Reports: Regular Rate, Regular Rhythm GI/Abdominal Exam: Normal Bowel Sounds, Soft, Non-Tender, No Organomegaly, No Distention, No Mass (Male) Exam: Deferred Rectal (Males) Exam: Deferred Back Exam: Reports: Normal Inspection, Full Range of Motion Extremities: Normal Inspection, Normal Range of Motion, Non-Tender, No Pedal Edema, Normal Capillary Refill Skin: Reports: Warm, Dry, Intact Neurological: Reports: No New Focal Deficit Psy/Mental Status: Reports: Alert, Normal Affect, Normal Mood
== END 2018-10-27 20:24 | disposition swing bed (61) ==
LOC: VM.ED 17:39 → VM.MS 19:15
PROVIDERS: ADMIT Physician Assistant; ATTEND Physician Assistant
DX: R53.1 Weakness (principal); E86.0 Dehydration; E87.6 Hypokalemia; E83.01 Wilson's disease; E78.00 Pure hypercholesterolemia, unspecified; F32.9 Major depressive disorder, single episode, unspecified; Z91.81 History of falling; Z86.73 Personal history of transient ischemic attack (TIA), and cerebral infarction without residual deficits; Z79.899 Other long term (current) drug therapy
CPT/HCPCS: 36415; 71045; 80048; 80053; 81001; 83605; 83735; 84100; 84484; 85025; 85610; 86140; 87040; 93005; 96360; 99285; A9270; J3480; J7030; 96361; 96365; 96366; G0378

== ENCOUNTER 2018-10-27 19:47 | Inpatient (IN) | payer MEDICAID ==
[2018-10-27] MEDS ORDERED: Ondansetron 4 MG Tab.DIS PO PRN (20:51)
[2018-10-27] MEDS ORDERED: Ondansetron 4 MG/2 ML SDV IV PRN (20:51)
[2018-10-27] MEDS ORDERED: Docusate Sodium 100 MG Cap PO PRN (20:51)
[2018-10-27] MEDS ORDERED: Bisacodyl 5 MG Tab PO PRN (20:51)
[2018-10-27] MEDS ORDERED: Enoxaparin 30 MG/0.3 ML Syringe SUBCUT SCH (21:00)
[2018-10-27] MEDS ORDERED: Enoxaparin 40 MG/0.4 ML Syringe SUBCUT SCH (21:00)
[2018-10-28] MEDS: Ibuprofen 200 MG Tab PO PRN (19:50)
[2018-10-28] MEDS: Mirtazapine 30 MG Tab PO SCH (19:50)
[2018-10-28] MEDS: atorvaSTATin 40 MG Tab PO SCH (19:51)
--- NOTE | 2018-10-29 16:19 | PN ---
Progress Note for TIMA POLO Date: 10/29/2018 Room #: VM.218 SUBJECTIVE: This is a 48-year-old with history of stroke and Raheem disease, who was admitted to observation status on October 25 because of weakness and falls. The patient himself did not feel any more weak than usual, but a neighbor was concerned that he had not been picking up his groceries and things. He has never been in long-term care. He declines that. store worker came in and placed him on self-pay swing bed with ER provider over the weekend and hopes that he would do some further therapies. At this point, the patient tells me he feels like he is fine to go home. He does not really know why he needs to stay. His speech is delayed. It does sound like that is his baseline. He denies any pain. The patient was given some IV fluids through the ER. No infection was identified. His sodium did get up to 146 at one point, but was normal on the . He had 0 to 5 wbc's and rbc's in his UA. OBJECTIVE: Vital Signs: Today, when I saw the patient, his temperature is 98.4, his pulse is down to 48, blood pressure 93/53, respiratory rate 14, and O2 of 97% on room air. General: He is in no acute distress. Heart: Regular rate and rhythm. S1, S2 without murmur. Lungs: Lung sounds are clear to auscultation bilaterally without crackles or wheezes. Abdomen: Nondistended. Extremities: Warm and dry. No edema. Strength testing is not performed. He was sitting. He had just finished eating. He actually ate all of his meal, but he had quite a bit of drooling going on and again his speech was quite delayed, but he could clearly answer questions yes or no. MEDICATIONS: The patient's only medications include Lipitor and Remeron at bedtime, his prescription medications. ASSESSMENT: 1. Raheem disease and a history of stroke. Sounds like the patient has just generalized weakness, maybe failure to thrive at home. 2. Dehydration, resolved with IV fluids. 3. Insomnia, possibly mood disorder, on Remeron. 4. Hyperlipidemia, on Lipitor. 5. History of nausea. Zofran is available if needed. PLAN: At this point, the patient will continue on swing bed cares to work with therapies. Social Service is also following. He has been taken off his Lovenox they placed him on for DVT prophylaxis. It sounds like he is pretty much at baseline. Hopefully, the patient will be safe to go home by self with some home health in the next several days. He is a code level 1. MKA: 10/29/2018 15:46:18 MODL: 10/29/2018 16:11:41 /[id number]
[2018-10-29] MEDS: Mirtazapine 30 MG Tab PO SCH (20:43)
[2018-10-29] MEDS: atorvaSTATin 40 MG Tab PO SCH (20:44)
[2018-10-30] MEDS ORDERED: ONDANSETRON 4 MG PO PRN (08:33)
[2018-10-30] MEDS: Ibuprofen 200 MG Tab PO PRN (18:44)
[2018-10-30] MEDS: MIRTAZAPINE 45 MG PO SCH (20:25)
[2018-10-30] MEDS: ATORVASTATIN 40 MG PO SCH (20:25)
[2018-10-31] MEDS: Ibuprofen 200 MG Tab PO PRN ×2 (09:17→20:55)
[2018-10-31] MEDS: MIRTAZAPINE 45 MG PO SCH (20:56)
[2018-10-31] MEDS: ATORVASTATIN 40 MG PO SCH (20:57)
[2018-11-01] MEDS: Ibuprofen 200 MG Tab PO PRN ×2 (08:59→19:42)
[2018-11-01] MEDS: ATORVASTATIN 40 MG PO SCH (19:43)
[2018-11-01] MEDS: MIRTAZAPINE 45 MG PO SCH (19:43)
[2018-11-02] MEDS: Ibuprofen 200 MG Tab PO PRN ×2 (08:41→20:28)
[2018-11-02] MEDS: ATORVASTATIN 40 MG PO SCH (20:28)
[2018-11-02] MEDS: MIRTAZAPINE 45 MG PO SCH (20:28)
[2018-11-03] MEDS: Ibuprofen 200 MG Tab PO PRN ×2 (08:39→20:02)
[2018-11-03] MEDS: MIRTAZAPINE 45 MG PO SCH (20:02)
[2018-11-03] MEDS: ATORVASTATIN 40 MG PO SCH (20:02)
[2018-11-04] MEDS: Ibuprofen 200 MG Tab PO PRN ×2 (08:42→19:54)
[2018-11-04] MEDS: ATORVASTATIN 40 MG PO SCH (19:54)
[2018-11-04] MEDS: MIRTAZAPINE 45 MG PO SCH (19:54)
[2018-11-05] MEDS: MIRTAZAPINE 45 MG PO SCH (20:02)
[2018-11-05] MEDS: Acetaminophen 325 MG Tab PO PRN (20:02)
[2018-11-05] MEDS: ATORVASTATIN 40 MG PO SCH (20:02)
--- NOTE | 2018-11-06 07:26 | PCM.SN ---
- Free Text/Narrative Note: Nurse notified me yesterday that the patient wants to leave AMA but he can't physically do so is trying to convince a friend to take him home. Per recent PT notes he remains very unsafe with gait and requires considerable assistance to get in and out of bed. Was at home defecating in bed per social services counselor reports. Has had considerable decline in his health due to Raheem's disease. Unless his friend is going to provide him 24 hr care taking him home would be very unsafe. Patient is competent. web services professional had arranged for him to be here for 1 month to try and get stronger for him to go home. I will round on him on 11/07.
[2018-11-06] MEDS: Ibuprofen 200 MG Tab PO PRN (19:42)
[2018-11-06] MEDS: ATORVASTATIN 40 MG PO SCH (19:42)
[2018-11-06] MEDS: MIRTAZAPINE 45 MG PO SCH (19:42)
[2018-11-07] MEDS: ATORVASTATIN 40 MG PO SCH (19:48)
[2018-11-07] MEDS: MIRTAZAPINE 45 MG PO SCH (19:48)
[2018-11-07] MEDS: Ibuprofen 200 MG Tab PO PRN (19:49)
[2018-11-08] MEDS: MIRTAZAPINE 45 MG PO SCH (20:53)
[2018-11-08] MEDS: ATORVASTATIN 40 MG PO SCH (20:53)
[2018-11-08] MEDS: Ibuprofen 200 MG Tab PO PRN (20:54)
[2018-11-09] MEDS: Ibuprofen 200 MG Tab PO PRN ×2 (09:06→19:52)
[2018-11-09] MEDS: ATORVASTATIN 40 MG PO SCH (19:51)
[2018-11-09] MEDS: MIRTAZAPINE 45 MG PO SCH (19:51)
[2018-11-10] MEDS: Ibuprofen 200 MG Tab PO PRN ×2 (08:40→21:16)
[2018-11-10] MEDS: MIRTAZAPINE 45 MG PO SCH (21:18)
[2018-11-10] MEDS: ATORVASTATIN 40 MG PO SCH (21:18)
[2018-11-11] MEDS: Ibuprofen 200 MG Tab PO PRN ×2 (09:38→20:41)
[2018-11-11] MEDS: ATORVASTATIN 40 MG PO SCH (20:41)
[2018-11-11] MEDS: MIRTAZAPINE 45 MG PO SCH (20:41)
[2018-11-12] MEDS: ATORVASTATIN 40 MG PO SCH (20:25)
[2018-11-12] MEDS: MIRTAZAPINE 45 MG PO SCH (20:25)
[2018-11-12] MEDS: Ibuprofen 200 MG Tab PO PRN (20:27)
--- NOTE | 2018-11-13 09:58 | PN ---
Progress Note for TIMA POLO Date: 11/13/2018 Room #: VM.218 SUBJECTIVE: This is a 48-year-old with history of stroke and Raheem disease, admitted for observation on 10/25/2018 and swing bed on 10/27/2018. His reason for admission was basically that he was weak, not taking care of himself at home. He had been picking up groceries or things, spending a lot of time in bed actually defecating per pediatric social worker here. Here, he is requiring assist of 2 to help him out of bed, almost like a powerlift per PT. When he gets up, he can walk. He has good strength, but he is very ataxic. They have to hold the walker down. He just does not have any control. The PT here had seen him in the previous years and states that he was doing much better. Even the social studies department chair had seen him several months ago and states his speech was much better. The patient denies pain. He is a smoker at home. He has been eating candy and things here. 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 OBJECTIVE: Vital Signs: Objectively; he has a temperature 98, pulse 45, blood pressure 99/43, respiratory rate 14 and O2 of 96% on room air. General: He is in no acute distress. Heart: Regular rate and rhythm. S1, S2 without murmur. Lungs: Lung sounds are clear to auscultation bilaterally without crackles or wheezes. Abdomen: Nondistended. Positive bowel sounds. Nontender. Extremities: Warm and dry. No edema. Neuro: Speech, he is able to answer questions yes or no. His speech is delayed. It actually seems slightly improved since our last visit. I did also see him on 11/07/2018, but did not put in a note as it was mostly to reinforce him staying here to get more therapies. MEDICATIONS: Include Tylenol p.r.n., Lipitor, stool softeners, ibuprofen p.r.n., Remeron 45 mg at bedtime, and Zofran p.r.n. which he has not used. LABORATORY DATA: His lab work that was done on acute care showed a hemoglobin at 12.8, which have been stable for his labs and platelets 109. Sodium 144, chloride 109, BUN 11, and creatinine 1.1. ASSESSMENT: 1. Raheem disease and history of stroke with difficulty with coordination resulting in inability to get out of bed without assistance and to walk safely without risk of falls. 2. Dehydration, resolved after some IV fluids on observation. 3. Insomnia and mood disorder on Remeron. 4. Thrombocytopenia. We will repeat a CBC today. 5. Hyperlipidemia on Lipitor. PLAN: At this point, the patient will continue swing bed cares until a further placement is found for continued therapies. He is not very accepting of a long-term facility at this point, but pediatric social worker is working with him. He cannot safely return home by himself currently. He will see Neurology tomorrow as arranged. This might be good for prognostication. Otherwise, we will continue assistance with ADLs. MKA: 11/13/2018 09:27:01 MODL: 11/13/2018 09:50:31 /[id number]
[2018-11-13 09:59] LABS: CHLORIDE,CL 109 mmol/L (98-107); SODIUM,NA 145 mmol/L (136-145)
[2018-11-13 10:00] LABS: ANION GAP 10.7 mmol/L (10-20)
[2018-11-13] MEDS: Ibuprofen 200 MG Tab PO PRN (20:31)
[2018-11-13] MEDS: MIRTAZAPINE 45 MG PO SCH ×2 (20:31→21:47)
[2018-11-13] MEDS: ATORVASTATIN 40 MG PO SCH ×2 (20:31→21:47)
[2018-11-14] MEDS: MIRTAZAPINE 45 MG PO SCH (19:52)
[2018-11-14] MEDS: ATORVASTATIN 40 MG PO SCH (19:52)
[2018-11-14] MEDS: Ibuprofen 200 MG Tab PO PRN (19:52)
[2018-11-14] MEDS: ATROPINE 1% SL SCH (19:53)
[2018-11-14] MEDS: BACLOFEN PO SCH (19:53)
[2018-11-14] MEDS ORDERED: Baclofen 10 MG Tab PO SCH (20:00)
[2018-11-15] MEDS: Ibuprofen 200 MG Tab PO PRN ×2 (09:28→21:17)
[2018-11-15] MEDS: BACLOFEN PO SCH ×3 (10:51→21:15)
[2018-11-15] MEDS: ATROPINE 1% SL SCH ×3 (10:52→21:15)
[2018-11-15] MEDS: ATORVASTATIN 40 MG PO SCH (21:14)
[2018-11-15] MEDS: MIRTAZAPINE 45 MG PO SCH (21:14)
[2018-11-16] MEDS: Ibuprofen 200 MG Tab PO PRN ×2 (08:50→19:33)
[2018-11-16] MEDS: BACLOFEN PO SCH ×3 (08:51→19:32)
[2018-11-16] MEDS: ATROPINE 1% SL SCH ×3 (08:51→19:32)
[2018-11-16] MEDS: MIRTAZAPINE 45 MG PO SCH (19:32)
[2018-11-16] MEDS: ATORVASTATIN 40 MG PO SCH (19:32)
[2018-11-17] MEDS: ATROPINE 1% SL SCH ×3 (08:36→20:23)
[2018-11-17] MEDS: Ibuprofen 200 MG Tab PO PRN ×2 (08:36→17:46)
[2018-11-17] MEDS: BACLOFEN PO SCH ×3 (08:36→20:25)
[2018-11-17] MEDS: ATORVASTATIN 40 MG PO SCH (20:23)
[2018-11-17] MEDS: MIRTAZAPINE 45 MG PO SCH (20:24)
[2018-11-18] MEDS: BACLOFEN PO SCH ×3 (08:11→20:18)
[2018-11-18] MEDS: ATROPINE 1% SL SCH ×3 (08:11→20:19)
[2018-11-18] MEDS: Ibuprofen 200 MG Tab PO PRN (12:38)
[2018-11-18] MEDS: MIRTAZAPINE 45 MG PO SCH (20:18)
[2018-11-18] MEDS: ATORVASTATIN 40 MG PO SCH (20:18)
[2018-11-19] MEDS: Ibuprofen 200 MG Tab PO PRN (07:49)
[2018-11-19] MEDS: BACLOFEN PO SCH ×3 (07:49→20:40)
[2018-11-19] MEDS: ATROPINE 1% SL SCH ×3 (07:50→20:39)
--- NOTE | 2018-11-19 17:08 | PCM.SN ---
- Free Text/Narrative Note: Increased baclofen to 10 TID to hopefully further improve progress with PT. Neuro updated.
[2018-11-19] MEDS: MIRTAZAPINE 45 MG PO SCH (20:40)
[2018-11-19] MEDS: ATORVASTATIN 40 MG PO SCH (20:40)
[2018-11-20] MEDS: Ibuprofen 200 MG Tab PO PRN (09:31)
[2018-11-20] MEDS: BACLOFEN PO SCH ×3 (09:31→19:46)
[2018-11-20] MEDS: ATROPINE 1% SL SCH ×3 (09:31→19:48)
[2018-11-20] MEDS: MIRTAZAPINE 45 MG PO SCH (19:46)
[2018-11-20] MEDS: ATORVASTATIN 40 MG PO SCH (19:46)
[2018-11-21] MEDS: ATROPINE 1% SL SCH ×2 (08:17→11:04)
[2018-11-21] MEDS: BACLOFEN PO SCH ×3 (08:17→20:11)
[2018-11-21] MEDS: Ibuprofen 200 MG Tab PO PRN (11:06)
[2018-11-21] MEDS: Acetaminophen 325 MG Tab PO PRN (12:47)
--- NOTE | 2018-11-21 15:11 | PCM.SN ---
- Free Text/Narrative Note: atropine not helping and patient not likely the taste so switch made to glyco for secretions. Still working with Neuro on other meds. Restarting Zinc. He has an appt with them in January. He will also have a speech consult and swallow eval if indicated.
[2018-11-21] MEDS ORDERED: Glycopyrrolate 1 MG Tab PO SCH (15:15)
[2018-11-21] MEDS: Zinc (Zinc Gluconate) 50 MG Tab PO SCH (16:42)
[2018-11-21] MEDS: MIRTAZAPINE 45 MG PO SCH (20:11)
[2018-11-21] MEDS: ATORVASTATIN 40 MG PO SCH (20:11)
[2018-11-21] MEDS: GLYCOPYRROLATE 1 MG PO SCH (20:17)
[2018-11-22] MEDS: GLYCOPYRROLATE 1 MG PO SCH ×2 (09:01→20:07)
[2018-11-22] MEDS: BACLOFEN PO SCH ×3 (09:01→20:06)
[2018-11-22] MEDS: Acetaminophen 325 MG Tab PO PRN (09:01)
[2018-11-22] MEDS: Zinc (Zinc Gluconate) 50 MG Tab PO SCH (09:01)
[2018-11-22] MEDS: Ibuprofen 200 MG Tab PO PRN ×2 (15:39→22:35)
[2018-11-22] MEDS: MIRTAZAPINE 45 MG PO SCH (20:08)
[2018-11-22] MEDS: ATORVASTATIN 40 MG PO SCH (20:08)
[2018-11-23] MEDS: BACLOFEN PO SCH (08:13)
[2018-11-23] MEDS: Zinc (Zinc Gluconate) 50 MG Tab PO SCH (08:13)
[2018-11-23] MEDS: GLYCOPYRROLATE 1 MG PO SCH ×2 (08:13→19:17)
[2018-11-23] MEDS: Ibuprofen 200 MG Tab PO PRN (08:13)
[2018-11-23] MEDS: ATORVASTATIN 40 MG PO SCH (19:17)
[2018-11-23] MEDS: MIRTAZAPINE 45 MG PO SCH (19:17)
[2018-11-24] MEDS: Zinc (Zinc Gluconate) 50 MG Tab PO SCH (08:08)
[2018-11-24] MEDS: Ibuprofen 200 MG Tab PO PRN ×3 (08:08→20:00)
[2018-11-24] MEDS: GLYCOPYRROLATE 1 MG PO SCH ×2 (08:08→19:58)
[2018-11-24] MEDS: MIRTAZAPINE 45 MG PO SCH (19:58)
[2018-11-24] MEDS: ATORVASTATIN 40 MG PO SCH (19:59)
[2018-11-25] MEDS: GLYCOPYRROLATE 1 MG PO SCH ×2 (08:20→19:09)
[2018-11-25] MEDS: Ibuprofen 200 MG Tab PO PRN ×2 (08:21→19:07)
[2018-11-25] MEDS: Zinc (Zinc Gluconate) 50 MG Tab PO SCH (08:21)
[2018-11-25] MEDS: ATORVASTATIN 40 MG PO SCH (19:08)
[2018-11-25] MEDS: MIRTAZAPINE 45 MG PO SCH (19:08)
[2018-11-26] MEDS: Zinc (Zinc Gluconate) 50 MG Tab PO SCH (07:33)
[2018-11-26] MEDS: GLYCOPYRROLATE 1 MG PO SCH ×2 (07:34→19:50)
--- NOTE | 2018-11-26 16:08 | PCM.SN ---
- Free Text/Narrative Note: Per Neuro Tests ordered Though he had diagnosis several years ago,we don't any tests to support the diagnosis and monitor treatment. Let's check serum ceruloplasminand 24 hrs copper in urine before starting treatment. I have ordered those. Please ask him to have blood draw. I am also referring him to neuro-ophtho for eval for any cataract. I reviewing more I feel that we should start with Penicillamine. After diagnosis is confirmed from above tests, we can start [id number] mg daily and will increase by every 2 weeks tomaximum total daily dose of500 BID. This regimen may reduce the incidence of early adverse side effects such as fever and rash, but does not appear to reduce the incidence of late-onset toxicity, such as the nephrotic syndrome. Dr. Ruiz plan to see him soon.
[2018-11-26] MEDS: MIRTAZAPINE 45 MG PO SCH (19:49)
[2018-11-26] MEDS: ATORVASTATIN 40 MG PO SCH (19:49)
[2018-11-27 06:56] LABS: ANION GAP 11.5 mmol/L (10-20); CHLORIDE,CL 108 mmol/L (98-107); SODIUM,NA 143 mmol/L (136-145)
[2018-11-27] MEDS: Zinc (Zinc Gluconate) 50 MG Tab PO SCH (08:09)
[2018-11-27] MEDS: Ibuprofen 200 MG Tab PO PRN (08:09)
[2018-11-27] MEDS: GLYCOPYRROLATE 1 MG PO SCH ×2 (08:10→19:53)
[2018-11-27] MEDS: ATORVASTATIN 40 MG PO SCH (19:52)
[2018-11-27] MEDS: MIRTAZAPINE 45 MG PO SCH (19:52)
[2018-11-27] MEDS: Acetaminophen 325 MG Tab PO PRN (20:00)
--- NOTE | 2018-11-27 21:48 | PCM.PN ---
- General Info Date of Service: 11/27/18 Subjective Update: 48 yo continues on swing bed is no longer working with PT do to lack of progress despite increasing his baclofen. His strength is not limited but his coordination is he does require assist of 2 to get out of bed when walking requires staff to hold down his walker. 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 Patient has not been agreeable to going to a NH but he is not able to physically return home. Is eating ok denies any trouble with swallowing tends to eat candy. Functional Status: Reports: Pain Controlled - Review of Systems General: Reports: No Symptoms Pulmonary: Reports: No Symptoms Cardiovascular: Reports: No Symptoms Neurological: Reports: Difficulty Walking, Gait Disturbance Psychiatric: Denies: Confusion - Patient Data Vitals - Most Recent: Last Vital Signs Temp 97.9 F 11/27/18 06:00 Pulse 52 L 11/27/18 06:00 Resp 20 11/27/18 06:00 BP 97/62 11/27/18 06:00 Pulse Ox 93 L 11/27/18 06:00 Weight - Most Recent: 69.354 kg I&O - Last 24 Hours: Intake & Output 11/27/18 11/27/18 11/27/18 06:59 14:59 22:59 Intake Total 480 360 Output Total 100 Balance 480 260 Lab Results Last 24 Hours: Laboratory Results - last 24 hr 11/27/18 11/27/18 Range/Units 06:29 06:29 WBC 6.0 (4.0-10.0) x10^3/uL RBC 4.33 L (4.5-6.0) x10^6/uL Hgb 13.6 L (14.0-18.0) g/dL Hct 40.4 (40.0-52.0) % MCV 93.3 H (78.0-93.0) fL MCH 31.4 (26.0-32.0) pg MCHC 33.7 (32.0-36.0) g/dL RDW Coeff of Karl 13.5 (10.0-15.0) % Plt Count 131 (130-400) x10^3/uL Neut % (Auto) 56.1 (50.0-80.0) % Lymph % (Auto) 28.0 (25.0-50.0) % Stanton % (Auto) 7.3 (2.0-11.0) % Eos % (Auto) 8.3 H (0.0-4.0) % Baso % (Auto) 0.3 (0.2-1.2) % Sodium 143 (136-145) mmol/L Potassium 3.5 (3.5-5.1) mmol/L Chloride 108 H (98-107) mmol/L Carbon Dioxide 27 (21-32) mmol/L Anion Gap 11.5 (10-20) mmol/L BUN 18 (7-18) mg/dL Creatinine 1.1 (0.70-1.30) mg/dL Est Cr Clr Drug Dosing 80.62 mL/min Estimated GFR (MDRD) > 60 Glucose 140 H (74-106) mg/dL Calcium 8.5 (8.5-10.1) mg/dL Med Orders - Current: Current Medications Acetaminophen (Tylenol) 650 mg PO Q4H PRN PRN Reason: Pain (Mild 1-3)/fever Last Admin: 11/27/18 20:00 Dose: 650 mg Bisacodyl (Dulcolax) 5 mg PO DAILY PRN PRN Reason: Constipation Docusate Sodium (Colace) 100 mg PO BID PRN PRN Reason: Constipation Ibuprofen (Motrin) 800 mg PO TID PRN PRN Reason: Pain Last Admin: 11/27/18 08:09 Dose: 800 mg Ondansetron. 4mg ( (Own Supply)) 1 each PO TID PRN PRN Reason: Nausea/Vomiting Atorvastatin. 40mg ( (Own Supply)) 1 each PO BEDTIME TIARA Last Admin: 11/27/18 19:52 Dose: 1 each Mirtazapine 45mg ( (Own Supply)) 1 each PO BEDTIME TIARA Last Admin: 11/27/18 19:52 Dose: 1 each Baclofen 10mg (Own (Supply)) 1 each PO TID TIARA Last Admin: 11/27/18 19:53 Dose: 1 each Atropine 1% Drops 4 drop SL TID PRN PRN Reason: SECRETIONS/DROOLING Last Admin: 11/27/18 08:54 Dose: 4 drop Glycopyrrolate. 1mg ((Own Supply)) 1 each PO BID TIARA Last Admin: 11/27/18 19:53 Dose: 1 each Zinc Gluconate (Zinc) 50 mg PO DAILY [facility] Last Admin: 11/27/18 08:09 Dose: 50 mg Discontinued Medications Atorvastatin Calcium (Lipitor) 40 mg PO BEDTIME [facility] Last Admin: 10/29/18 20:44 Dose: 40 mg Enoxaparin Sodium (Lovenox) 30 mg SUBCUT DAILY [facility] Last Admin: 10/27/18 21:25 Dose: Not Given Enoxaparin Sodium (Lovenox) 40 mg SUBCUT DAILY@2100 [facility] Last Admin: 10/27/18 21:24 Dose: 40 mg Mirtazapine (Remeron) 45 mg PO BEDTIME [facility] Last Admin: 10/29/18 20:43 Dose: 45 mg Baclofen 5mg (1/2 X (10mg Tab) Own Supply) 1 each PO TID [facility] Last Admin: 11/19/18 07:49 Dose: 1 each Atropine 1% Drops. ( (Own Supply)) 1 drop SL TID [facility] Last Admin: 11/20/18 09:31 Dose: 1 drop Baclofen 10mg (5mg Half-Tabs X 2) (Own Supply) 0 each PO TID [facility] Stop: 11/23/18 08:01 Last Admin: 11/23/18 08:13 Dose: 2 each Atropine 1% Drops. ( (Own Supply)) 4 drop SL TID [facility] Last Admin: 11/21/18 11:04 Dose: 4 drop Ondansetron HCl (Zofran) 4 mg IV Q6H PRN PRN Reason: Nausea/Vomiting - Exam General: Alert HEENT: Pupils Equal Lungs: Clear to Auscultation, Normal Respiratory Effort Cardiovascular: Regular Rate, Regular Rhythm Extremities: No Pedal Edema Skin: Warm, Dry Psy/Mental Status: Alert, Other (a little withdrawn didn't seem to want to make eye contact and answer questions ) - Problem List & Annotations (1) History of CVA with residual deficit SNOMED Code(s): 965285257 Code(s): I69.30 - UNSPECIFIED SEQUELAE OF CEREBRAL INFARCTION Status: Chronic Priority: Medium Current Visit: No (2) Cathleen's disease SNOMED Code(s): 60961822, 470421007, 769063982 Code(s): E83.01 - CATHLEEN'S DISEASE Status: Chronic Priority: Medium Current Visit: No - Problem List Review Problem List Initiated/Reviewed/Updated: Yes - My Orders Last 24 Hours: My Active Orders 11/27/18 06:29 CERULOPLASMIN [REF] Routine 11/27/18 08:55 OT Evaluation and Treatment [CONS] Routine - Assessment Assessment:: Cathleen's disease Impaired gait Hx of stroke Mild anemia hgb stable by labs Mild hyperglycemia Plan: OT for cognitive eval creative services director to continue following and will profile to nursing homes We will continue to encourage him to agree to go for further therapies Neurology work up and follow up are in the works - Plan Plan:: Patient appears to have the mental capacity to make decisions but hasn't had a cognitive eval now for over 3 months. He is physically unable to return home. Even if a financial secretary allowed him to do that it would take 2 people to transfer him home and the county and licensed master social worker are not going to be able to do that. If he somehow were to make it home I actually doubt they would allow him to continue live in his apartment as he is unable to care for himself.
[2018-11-28] MEDS: GLYCOPYRROLATE 1 MG PO SCH ×2 (08:13→20:21)
[2018-11-28] MEDS: Zinc (Zinc Gluconate) 50 MG Tab PO SCH (08:13)
[2018-11-28] MEDS: ATORVASTATIN 40 MG PO SCH (20:21)
[2018-11-28] MEDS: MIRTAZAPINE 45 MG PO SCH (20:21)
[2018-11-29] MEDS: Ibuprofen 200 MG Tab PO PRN ×2 (08:41→20:31)
[2018-11-29] MEDS: Zinc (Zinc Gluconate) 50 MG Tab PO SCH (08:41)
[2018-11-29] MEDS: GLYCOPYRROLATE 1 MG PO SCH ×2 (08:42→20:32)
[2018-11-29] MEDS: MIRTAZAPINE 45 MG PO SCH (20:32)
[2018-11-29] MEDS: ATORVASTATIN 40 MG PO SCH (20:32)
[2018-11-30] MEDS: Zinc (Zinc Gluconate) 50 MG Tab PO SCH (08:17)
[2018-11-30] MEDS: GLYCOPYRROLATE 1 MG PO SCH ×2 (08:17→21:00)
[2018-11-30] MEDS: MIRTAZAPINE 45 MG PO SCH (21:00)
[2018-11-30] MEDS: ATORVASTATIN 40 MG PO SCH (21:00)
[2018-11-30] MEDS: Ibuprofen 200 MG Tab PO PRN (21:00)
[2018-12-01] MEDS: Zinc (Zinc Gluconate) 50 MG Tab PO SCH (09:13)
[2018-12-01] MEDS: GLYCOPYRROLATE 1 MG PO SCH ×2 (09:13→20:37)
[2018-12-01] MEDS: Ibuprofen 200 MG Tab PO PRN (09:13)
[2018-12-01] MEDS: Acetaminophen 325 MG Tab PO PRN (20:37)
[2018-12-01] MEDS: ATORVASTATIN 40 MG PO SCH (20:38)
[2018-12-01] MEDS: MIRTAZAPINE 45 MG PO SCH (20:38)
[2018-12-02] MEDS: GLYCOPYRROLATE 1 MG PO SCH ×2 (08:19→20:31)
[2018-12-02] MEDS: Zinc (Zinc Gluconate) 50 MG Tab PO SCH (08:20)
--- NOTE | 2018-12-02 16:42 | PCM.SN ---
- Free Text/Narrative Note: Visited with Jude he is more agreeable to go to the [facility] now. Per social media assistant no bed offers yet. He is now needing help with feeding. Urine test pending but Ceruloplasmin low communicated with Neuro. Will repeat lfts with next lab his AST was just mildly elevated previously. Neuro follow ups are being arranged for December in [place].
[2018-12-02] MEDS: Acetaminophen 325 MG Tab PO PRN (20:31)
[2018-12-02] MEDS: MIRTAZAPINE 45 MG PO SCH (20:32)
[2018-12-02] MEDS: ATORVASTATIN 40 MG PO SCH (20:32)
[2018-12-03] MEDS: Zinc (Zinc Gluconate) 50 MG Tab PO SCH (07:35)
[2018-12-03] MEDS: GLYCOPYRROLATE 1 MG PO SCH ×2 (07:35→20:17)
[2018-12-03] MEDS: ATORVASTATIN 40 MG PO SCH (20:16)
[2018-12-03] MEDS: MIRTAZAPINE 45 MG PO SCH (20:16)
[2018-12-03] MEDS: Acetaminophen 325 MG Tab PO PRN (20:16)
[2018-12-04] MEDS: GLYCOPYRROLATE 1 MG PO SCH ×2 (07:48→20:33)
[2018-12-04] MEDS: Zinc (Zinc Gluconate) 50 MG Tab PO SCH (11:16)
[2018-12-04] MEDS: MIRTAZAPINE 45 MG PO SCH (20:32)
[2018-12-04] MEDS: ATORVASTATIN 40 MG PO SCH (20:32)
[2018-12-04] MEDS: Acetaminophen 325 MG Tab PO PRN (20:33)
[2018-12-05] MEDS: GLYCOPYRROLATE 1 MG PO SCH ×2 (08:05→21:15)
[2018-12-05] MEDS: Zinc (Zinc Gluconate) 50 MG Tab PO SCH (08:05)
[2018-12-05] MEDS: Ibuprofen 200 MG Tab PO PRN ×2 (08:10→12:09)
[2018-12-05] MEDS: MIRTAZAPINE 45 MG PO SCH (21:16)
[2018-12-05] MEDS: ATORVASTATIN 40 MG PO SCH (21:16)
[2018-12-05] MEDS: Acetaminophen 325 MG Tab PO PRN (21:19)
[2018-12-06] MEDS: Zinc (Zinc Gluconate) 50 MG Tab PO SCH (08:17)
[2018-12-06] MEDS: Ibuprofen 200 MG Tab PO PRN ×2 (08:17→20:14)
[2018-12-06] MEDS: GLYCOPYRROLATE 1 MG PO SCH ×2 (08:17→20:13)
[2018-12-06] MEDS: ATORVASTATIN 40 MG PO SCH (20:15)
[2018-12-06] MEDS: MIRTAZAPINE 45 MG PO SCH (20:16)
[2018-12-07] MEDS: GLYCOPYRROLATE 1 MG PO SCH ×2 (07:53→20:19)
[2018-12-07] MEDS: Zinc (Zinc Gluconate) 50 MG Tab PO SCH (07:54)
[2018-12-07] MEDS: Ibuprofen 200 MG Tab PO PRN (20:17)
[2018-12-07] MEDS: MIRTAZAPINE 45 MG PO SCH (20:20)
[2018-12-07] MEDS: ATORVASTATIN 40 MG PO SCH (20:20)
[2018-12-08] MEDS: Zinc (Zinc Gluconate) 50 MG Tab PO SCH (09:15)
[2018-12-08] MEDS: GLYCOPYRROLATE 1 MG PO SCH ×2 (09:15→20:45)
[2018-12-08] MEDS: Acetaminophen 325 MG Tab PO PRN (20:43)
[2018-12-08] MEDS: ATORVASTATIN 40 MG PO SCH (20:44)
[2018-12-08] MEDS: MIRTAZAPINE 45 MG PO SCH (20:44)
[2018-12-09] MEDS: Zinc (Zinc Gluconate) 50 MG Tab PO SCH (07:13)
[2018-12-09] MEDS: GLYCOPYRROLATE 1 MG PO SCH ×2 (07:13→19:47)
[2018-12-09] MEDS: Ibuprofen 200 MG Tab PO PRN (07:18)
[2018-12-09] MEDS ORDERED: Barium Sulfate 60% w/w Esophageal Crm 454 GM Tube ONE (10:00)
[2018-12-09] MEDS ORDERED: Barium Sulfate 98% Powder for Susp 340 GM Bottle ONE (10:00)
--- NOTE | 2018-12-09 13:54 | CR ---
[id number] RAD/RAD Video Swallow Study EXAM: VIDEO SWALLOWING STUDY INDICATION: DIFFICULTY SWALLOWING. COMPARISON: None. DISCUSSION: Multiple consistencies of barium were administered orally under fluoroscopic observation. This was performed in conjunction with speech pathology, refer to their report for full details. IMPRESSION: 1. As above. Davy Matthew DO 12/09/18 0893 Thank you for allowing us to participate in the care of your patient.
[2018-12-09] MEDS: MIRTAZAPINE 45 MG PO SCH (19:47)
[2018-12-09] MEDS: Acetaminophen 325 MG Tab PO PRN (19:47)
[2018-12-09] MEDS: ATORVASTATIN 40 MG PO SCH (19:47)
[2018-12-10] MEDS: Zinc (Zinc Gluconate) 50 MG Tab PO SCH (07:51)
[2018-12-10] MEDS: GLYCOPYRROLATE 1 MG PO SCH ×2 (07:51→19:49)
[2018-12-10] MEDS: Ibuprofen 200 MG Tab PO PRN (12:03)
[2018-12-10] MEDS: Acetaminophen 325 MG Tab PO PRN (19:49)
[2018-12-10] MEDS: ATORVASTATIN 40 MG PO SCH (19:50)
[2018-12-10] MEDS: MIRTAZAPINE 45 MG PO SCH (19:50)
[2018-12-11] MEDS: Zinc (Zinc Gluconate) 50 MG Tab PO SCH (09:18)
[2018-12-11] MEDS: GLYCOPYRROLATE 1 MG PO SCH ×2 (09:18→20:39)
[2018-12-11] MEDS: Ibuprofen 200 MG Tab PO PRN (09:22)
[2018-12-11] MEDS: Acetaminophen 325 MG Tab PO PRN (20:37)
[2018-12-11] MEDS: MIRTAZAPINE 45 MG PO SCH (20:38)
[2018-12-11] MEDS: ATORVASTATIN 40 MG PO SCH (20:38)
[2018-12-12] MEDS: Zinc (Zinc Gluconate) 50 MG Tab PO SCH (07:39)
[2018-12-12] MEDS: GLYCOPYRROLATE 1 MG PO SCH (07:39)
--- NOTE | 2018-12-13 07:07 | DISCH ---
PRIMARY DISCHARGE DIAGNOSES: 1. 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 2. History of stroke and left hemiparesis. 3. 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 4. Dehydration due to poor oral intake at home. 5. Vulnerable adult status. 6. Mood disorder and insomnia, on Remeron. 7. Hyperlipidemia, on Lipitor. REASON FOR ADMISSION: On the date of admission back in early October, the patient came in to the emergency room as a neighbor was concerned about him. He had not picked up any groceries. They did sort of a welfare check. He had seen the health social work professor through the [facility]. Even the health social work professor here had seen him several months prior and was surprised at how much he had declined. The therapist had worked with him back in July. He was just having difficulty, he was having more slow speech. He was sounds like even not able to get out of bed to use the bathroom. Lab work did show just mildly low potassium. Creatinine up to 1.3. No urine infection. He received some IV fluids and it was felt that he was not safe to return to his home. Therefore, he was admitted to swing bed status and has been on swing bed. He has worked with therapies. They had discharged him, then he had seen Neurology and we started him on baclofen, and at that point they worked with him again. He also had lab work showing a very low, less than 3 ceruloplasmin and a urine copper of 42. Those were done at the request of the neurologist, Dr. Fry, who he did see. He has a followup in December with Neurology and considerations are to start new medications like Penicillamine for him, 250 mg daily and increase up to a maximum of 500 mg twice daily. Otherwise, patient initially was very hesitant to transferring to the alf, but gradually he accepted the idea, especially since I have recommended they could restart him on therapies. He otherwise was his own decision maker. During his stay, we had occupational therapist see him to complete a cognitive score. He could not use his hands well enough to complete some of the other sections. He only missed 1 question on the memory section. DISCHARGE PLANS AND INSTRUCTIONS: The patient is going over to [facility]. I have elected due to his gait problems to try being off lipitor. We will recheck lipids, BMP, and CBC in 3 months. I will see him on alf rounds. He will have PT, OT, and Speech at the alf. He did also complete a swallow eval while he was here that showed him needing a nectar- thickened diet. He had no coughing or pneumonia problems during his stay. He did have a chest x-ray that showed no infiltrates. He will also have his neuro appointment on 01/06/2019 at 9 a.m. in [place] for followup. Vital Signs: Discharge vitals include a temperature 97.8, weight 69.6, pulse 51, blood pressure 107/61, respiratory rate 18, and O2 96 on room air. General: He is in no acute distress. Heart: Regular rate and rhythm. Lungs: Lung sounds are clear to auscultation bilaterally without crackles or wheezes. Abdomen: Positive bowel sounds. Soft, nontender. Extremities: Warm and dry. No edema. The patient also had no drooling. We talked about taking the glycopyrrolate. He did not feel his mouth was dry from it. He did not feel the atropine drops were beneficial. Therefore, that is a new medication for his drooling and the baclofen is new. Otherwise, he was on the Remeron already at home, but it is unclear how often he had been taking it. It should also be noted the patient tended to eat quite a bit of candy instead of eating actual foods during his stay, but his meal intake did improve and he was also eating 100% in the last week before discharge. MKA: 12/12/2018 10:14:29 MODL: 12/13/2018 06:59:00 /[id number]
== END 2018-12-12 10:56 | DRG 948 ==
LOC: VM.MS 20:24
PROVIDERS: ADMIT Physician Assistant; ATTEND Internal Medicine
DX: R53.1 Weakness (principal); I69.954 Hemiplegia and hemiparesis following unspecified cerebrovascular disease affecting left non-dominant side; E86.0 Dehydration; E87.6 Hypokalemia; E83.01 Wilson's disease; R26.9 Unspecified abnormalities of gait and mobility; D64.9 Anemia, unspecified; R73.9 Hyperglycemia, unspecified; D69.6 Thrombocytopenia, unspecified; G47.00 Insomnia, unspecified; E78.5 Hyperlipidemia, unspecified; F39 Unspecified mood [affective] disorder; M62.9 Disorder of muscle, unspecified; Z79.899 Other long term (current) drug therapy
CPT/HCPCS: 36415; 74230; 80048; 82390; 82525; 82570; 85025; 92526-GN; 92610-GN; 92611-GN; 97110-GO; 97110-GP; 97116-GP; 97161-GP; 97164-GP; 97165-GO; 97168-GO; 97530-GP; 97535-GO; A9270-GY; J1650